=== PATIENT | female | born 1955 | race Caucasian/White ===

== ENCOUNTER → 2017-02-17 | Outpatient (CLI) | payer OTHER ==
[~2017-02-17] MED LIST: ISOVUE-370 76% 100ML VIAL (Q9967) As Ordered ONE
--- NOTE | 2017-02-18 03:46 | REP ---
Clinical: Recurrent urinary tract system and family history of renal cell carcinoma. Technique: Axial contrast enhanced images from the lung bases to the pubic symphysis using 100 ml Isovue 370 intravenous contrast material with precontrast and delayed images of the abdomen as well as coronal and sagittal re-formations. Comparison: 07/24/2014. Findings: Evaluation of the urinary tract system is essentially unremarkable. Incidental note is made of a sub centimeter cyst along the anterior margin of the left kidney mid pole level. No evidence for nephrolithiasis, hydroureteronephrosis, perinephric stranding or mass lesion appreciated. Liver includes 2.3 cm cyst and is otherwise unremarkable. Spleen, pancreas, gallbladder, and bilateral adrenal glands are normal. The enteric system is without obstruction or acute inflammatory process. Pelvis demonstrates normal bladder and evidence for prior hysterectomy. Sigmoid diverticulosis noted without acute diverticulitis. No pelvic fluid or ascites. No intraperitoneal or retroperitoneal adenopathy. No mass lesion. Vasculature appears relatively normal. Surrounding musculoskeletal structures demonstrate degenerative changes without focal osseous abnormality. Lung bases clear. Impression: 1. Subcentimeter left renal cyst. Otherwise normal appearance to the urinary tract system. 2. 2.3 cm hepatic cyst. 3. Sigmoid diverticulosis. 4. No acute intra-abdominal or pelvic pathology appreciated. Signed by Ben Frey MD 02/18/2017 03:38 A
== END ==
LOC: M RAD 07:32
PROVIDERS: ATTEND Nurse Practitioner Women's Health
DX: N39.0 Urinary tract infection, site not specified (principal); N28.1 Cyst of kidney, acquired; Z80.51 Family history of malignant neoplasm of kidney; K76.89 Other specified diseases of liver; K57.30 Diverticulosis of large intestine without perforation or abscess without bleeding
CPT/HCPCS: 74178; Q9967

== ENCOUNTER → 2017-02-24 | Outpatient (REF) | payer OTHER | LOC: M SMT 13:03 | PROVIDERS: ATTEND Nurse Practitioner Women's Health | DX: Z87.440 Personal history of urinary (tract) infections (principal) ==

== ENCOUNTER → 2017-03-12 | Outpatient (CLI) | payer OTHER ==
--- NOTE | 2017-03-12 11:40 | REPMRS ---
Patient History The patient states she has not had a clinical breast exam in over a year. Patient is postmenopausal. Family history of colorectal cancer in mother at age 50 or over and colorectal cancer in brother at age 50 or over. Digital Mammo Screening Bilat: March 12, 2017 - Exam #: [id number] Bilateral CC and MLO view(s) were taken. Technologist: Tiffany Duran, Technologist Prior study comparison: March 07, 2016, bilateral digital mammo screening bilat performed at [facility]. February 27, 2015, bilateral digital mammo screening bilat performed at [facility]. FINDINGS: There are scattered fibroglandular densities. There has been no change in the appearance of the mammogram from the prior studies. There is a mild amount of residual fibroglandular tissue which is fairly symmetric. There is no interval development of dominant mass, architectural distortion, or clustered microcalcification suggestive of malignancy. ASSESSMENT: BI-RADS/ACR category 1 mammogram. Negative. Recommendation Routine screening mammogram in 1 year (for women over age 40). This mammogram was interpreted with the aid of an FDA-approved computer-aided dectection system. Electronically Signed By: Adolfo Lima MD 03/12/17 [id number]
== END ==
LOC: M RAD 10:59
PROVIDERS: ATTEND Family Medicine
DX: Z12.31 Encounter for screening mammogram for malignant neoplasm of breast (principal)

== ENCOUNTER 2017-10-14 05:55 | Inpatient (IN) | payer OTHER ==
[2017-10-14] MEDS: CLINDAMYCIN INJ 900MG/6ML VIAL As Ordered ×2 (05:22→09:44)
[2017-10-14] MEDS: LR 1,000 ML IV ×2 (06:35→11:00)
[2017-10-14] MEDS ORDERED: MIDAZOLAM INJ 2 MG/2 ML VIAL (J2250) As Ordered (06:42)
[2017-10-14] MEDS ORDERED: fentaNYL 100 MCG/2 ML INJECTION (J3010) As Ordered ×2 (06:42→09:54)
[2017-10-14] MEDS: VANCOMYCIN HCL 1,000 MG, VIAL MATE ADAPTER 1 EACH in D5W 250 ML IV ×2 (07:05→20:07)
[2017-10-14] MEDS: MIDAZOLAM INJ 2 MG/2 ML VIAL (J2250) IV (07:07)
[2017-10-14] MEDS: fentaNYL 100 MCG/2 ML INJECTION (J3010) IV (07:07)
[2017-10-14] MEDS: TRANEXAMIC ACID 100 MG/ML 10ML VIAL As Ordered (07:50)
[2017-10-14] MEDS ORDERED: LIDOCAINE 2% INJ 100 MG/5 ML SDV (FOR ANES.) As Ordered (07:54)
[2017-10-14] MEDS ORDERED: PROPOFOL 200 MG/20 ML VIAL As Ordered ×4 (07:54→09:55)
[2017-10-14] MEDS: BUPIVACAINE LIPOSOME/PF 1.3% 20 ML VIAL (13.3MG/ML)(EXPAREL) As Ordered ×2 (08:48→09:44)
[2017-10-14] MEDS: LOSARTAN 50 MG TAB PO (09:00)
[2017-10-14] MEDS ORDERED: LIDOCAINE 1% MDV 20ML VIAL (09:47)
[2017-10-14] MEDS ORDERED: ROPIvacaine 0.5% 30 ML INJECTION (J2795 PER 1MG) (09:47)
[2017-10-14] MEDS ORDERED: PERCOCET 5MG/325MG TAB PO (11:00)
[2017-10-14] MEDS ORDERED: MEPERIDINE INJ 25 MG/ML VIAL (J2175) IV (11:00)
[2017-10-14] MEDS ORDERED: ONDANSETRON 4MG/2ML VIAL (J2405) IV ×2 (11:00→11:45)
[2017-10-14] MEDS ORDERED: METOCLOPRAMIDE INJ 10MG/2ML VIAL (J2765) IV (11:00)
[2017-10-14] MEDS ORDERED: fentaNYL 100 MCG/2 ML INJECTION (J3010) IV (11:00)
[2017-10-14] MEDS ORDERED: ACETAMINOPHEN TAB 650MG DOSE (2X325MG) PO (11:45)
[2017-10-14] MEDS ORDERED: traMADol 50 MG TAB PO (11:45)
[2017-10-14] MEDS: traMADol 50 MG TAB PO (12:50)
[2017-10-14] MEDS: PERCOCET 5MG/325MG TAB PO ×3 (14:37→22:53)
[2017-10-14] MEDS: PROPRANOLOL 60 MG LA CAP PO (20:07)
[2017-10-14] MEDS: SERTRALINE HCL 25 MG TABLET PO (20:07)
[2017-10-14] MEDS: ACETAMINOPHEN TAB 650MG DOSE (2X325MG) PO (20:16)
[2017-10-15] MEDS: PERCOCET 5MG/325MG TAB PO ×5 (05:20→21:54)
[2017-10-15 07:56] LABS: HEMATOCRIT 32.8 % (36.0-47.0); HEMOGLOBIN 10.5 g/dl (12.0-16.0); MEAN CORPUSCULAR HEMOGLOBIN 28.7 pg (27.0-33.0); MEAN CORPUSCULAR VOLUME 89.6 fl (80.0-96.0); PLATELET COUNT, AUTOMATED 252 10^3/uL (150-450); RED BLOOD COUNT 3.66 10^6/uL (4.00-5.40); RED CELL DISTRIBUTION WIDTH 13.4 % (11.5-14.5); WHITE BLOOD COUNT 10.9 10^3/uL (4.0-10.0)
[2017-10-15 08:09] LABS: INR 1.09; PROTHROMBIN TIME 14.3 SECONDS (12.4-14.5)
[2017-10-15] MEDS ORDERED: PROPRANOLOL 60 MG LA CAP PO (09:00)
[2017-10-15] MEDS: LOSARTAN 50 MG TAB PO (09:24)
[2017-10-15] MEDS: ENOXAPARIN 40 MG/0.4 ML SYRINGE (J1650) SC (09:25)
[2017-10-15] MEDS: SERTRALINE HCL 25 MG TABLET PO (20:08)
[2017-10-15] MEDS: PROPRANOLOL 60 MG LA CAP PO (20:09)
[2017-10-16] MEDS: PERCOCET 5MG/325MG TAB PO ×2 (05:41→10:14)
[2017-10-16 07:04] LABS: INR 1.11; PROTHROMBIN TIME 14.5 SECONDS (12.4-14.5)
[2017-10-16] MEDS: LOSARTAN 50 MG TAB PO (08:45)
[2017-10-16] MEDS: ENOXAPARIN 40 MG/0.4 ML SYRINGE (J1650) SC (08:46)
== END 2017-10-16 12:07 | disposition home or self-care (01) | DRG 470 ==
LOC: M OR 05:55 → M MS5PR 13:20
PROC: 0SRC0J9 Replacement of Right Knee Joint with Synthetic Substitute, Cemented, Open Approach (ICD-10-PCS; principal; 2017-10-14 07:30)
DX: M17.11 Unilateral primary osteoarthritis, right knee (principal); Z88.0 Allergy status to penicillin; Z88.2 Allergy status to sulfonamides; Z88.5 Allergy status to narcotic agent; Z88.8 Allergy status to other drugs, medicaments and biological substances; Z79.899 Other long term (current) drug therapy

== ENCOUNTER → 2018-01-29 | Outpatient (CLI) | payer OTHER | LOC: M RAD 13:17 | DX: N28.1 Cyst of kidney, acquired (principal); Z85.528 Personal history of other malignant neoplasm of kidney ==

== ENCOUNTER → 2018-03-16 | Outpatient (CLI) | payer OTHER | LOC: M RAD 09:43 | DX: R92.2 Inconclusive mammogram (principal) | CPT/HCPCS: 77067 ==

== ENCOUNTER → 2018-03-23 | Outpatient (CLI) | payer OTHER | LOC: M RAD 10:27 | DX: N63.10 Unspecified lump in the right breast, unspecified quadrant (principal) | CPT/HCPCS: 77065 ==

== ENCOUNTER → 2018-04-08 | Outpatient (CLI) | payer OTHER | LOC: M RAD 11:03 | DX: N63.11 Unspecified lump in the right breast, upper outer quadrant (principal) | CPT/HCPCS: 77065 ==

== ENCOUNTER → 2018-05-06 | Outpatient (CLI) | payer OTHER ==
[~2018-05-06] MED LIST changes: -ISOVUE-370 76% 100ML VIAL (Q9967) As Ordered ONE; +LIDOCAINE 1% MDV 20ML VIAL As Ordered
== END ==
LOC: M RADPRO 10:46
DX: N63.10 Unspecified lump in the right breast, unspecified quadrant (principal); D48.61 Neoplasm of uncertain behavior of right breast; Z88.5 Allergy status to narcotic agent; Z88.8 Allergy status to other drugs, medicaments and biological substances; Z88.0 Allergy status to penicillin; Z88.1 Allergy status to other antibiotic agents
CPT/HCPCS: 19081

== ENCOUNTER 2018-06-01 06:42 | Day surgery (SDC) | payer OTHER ==
[~2018-06-01 06:42] MED LIST changes: -LIDOCAINE 1% MDV 20ML VIAL As Ordered; +LIDOCAINE 1% MDV 20ML VIAL SQ
[2018-06-01] MEDS ORDERED: LIDOCAINE 5% (LIDODERM) PATCH TD ×2 (07:00)
[2018-06-01] MEDS ORDERED: LR 1,000 ML IV ×2 (07:00)
[2018-06-01] MEDS ORDERED: LIDOCAINE 1% MDV 20ML VIAL As Ordered ×2 (07:08)
[2018-06-01] MEDS ORDERED: LIDOCAINE 2% INJ 100 MG/5 ML SDV (FOR ANES.) As Ordered ×2 (10:07)
[2018-06-01] MEDS ORDERED: PROPOFOL 200 MG/20 ML VIAL As Ordered ×6 (10:07→10:56)
[2018-06-01] MEDS ORDERED: ONDANSETRON 4MG/2ML VIAL (J2405) As Ordered ×2 (10:07)
[2018-06-01] MEDS ORDERED: fentaNYL 250 MCG/5 ML INJECTION (J3010) As Ordered ×2 (10:07)
[2018-06-01] MEDS ORDERED: MIDAZOLAM INJ 2 MG/2 ML VIAL (J2250) As Ordered ×2 (10:07)
[2018-06-01] MEDS ORDERED: ePHEDrine SULFATE 25 MG/5 ML(5MG/ML) SYRINGE As Ordered ×2 (10:10)
[2018-06-01] MEDS: LIDOCAINE 1% SDV INJ 30 ML VIAL As Ordered ×2 (10:16)
[2018-06-01] MEDS: BUPIVACAINE HCL 0.25% 30 ML VIAL As Ordered ×2 (11:06)
== END 2018-06-01 12:25 | disposition home or self-care (01) ==
LOC: M SDC 06:42
DX: N60.91 Unspecified benign mammary dysplasia of right breast (principal); I10 Essential (primary) hypertension; H40.9 Unspecified glaucoma; F32.9 Major depressive disorder, single episode, unspecified; I49.9 Cardiac arrhythmia, unspecified; E78.00 Pure hypercholesterolemia, unspecified; M12.9 Arthropathy, unspecified; L30.9 Dermatitis, unspecified; J45.909 Unspecified asthma, uncomplicated; R06.83 Snoring; G47.33 Obstructive sleep apnea (adult) (pediatric); Z88.0 Allergy status to penicillin; Z88.2 Allergy status to sulfonamides; Z88.5 Allergy status to narcotic agent; Z88.6 Allergy status to analgesic agent; Z88.8 Allergy status to other drugs, medicaments and biological substances; Z79.899 Other long term (current) drug therapy; Z79.82 Long term (current) use of aspirin; Z90.710 Acquired absence of both cervix and uterus; Z87.891 Personal history of nicotine dependence; Z96.651 Presence of right artificial knee joint
CPT/HCPCS: 19125

== ENCOUNTER 2019-01-05 05:54 | Inpatient (IN) | payer OTHER ==
[2019-01-05] VITALS (7 sets, daily range): BP systolic 111–166; BP diastolic 50–88
[~2019-01-05] VITALS: Ht 165.1 cm; Wt 122.5 kg
[~2019-01-05 05:54] MED LIST changes: +ASPI81TA26 PO; +ASPI81TA85 PO; +B-122500 PO; +FISH5CAP PO; +FLAX1CAP5 PO; +GLUC1CAP10 PO; +KP F1200 PO; +L-LY500C2 PO; +L-LY500T9 PO; -LIDOCAINE 1% MDV 20ML VIAL SQ; +LOSA100T50 PO; +OYST1TAB PO; +OYST500T11 PO; +PERCOCET PO; +PROP60TA14 PO; +SERT25TA85 PO; +VITA1CAP25 PO; +XALA0.007 OU
[2019-01-05] MEDS ORDERED: LR 1,000 ML IV ONE (06:00)
[2019-01-05] MEDS ORDERED: VANCOMYCIN HCL 1,000 MG, VIAL MATE ADAPTER 1 EACH in D5W 250 ML IV ONE ×2 (06:00→19:00)
[2019-01-05] MEDS ORDERED: VANCOMYCIN 1000 MG/20 ML VIAL (J3370) As Ordered ONE (06:22)
[2019-01-05] MEDS ORDERED: MIDAZOLAM INJ 2 MG/2 ML VIAL (J2250) As Ordered ONE ×2 (06:38→09:02)
[2019-01-05] MEDS ORDERED: fentaNYL 100 MCG/2 ML INJECTION (J3010) As Ordered ONE ×2 (06:38→09:02)
[2019-01-05] MEDS ORDERED: CLINDAMYCIN INJ 900MG/6ML VIAL As Ordered ONE (07:13)
[2019-01-05] MEDS ORDERED: LIDOCAINE 2% INJ 100 MG/5 ML SDV (FOR ANES.) As Ordered ONE ×2 (07:27→09:02)
[2019-01-05] MEDS ORDERED: PROPOFOL 200 MG/20 ML VIAL As Ordered ONE ×4 (07:27→09:55)
[2019-01-05] MEDS ORDERED: ACETAMINOPHEN 1000MG 100ML IV BTL (OFIRMEV) (J0131 PER 10MG) As Ordered ONE (07:29)
[2019-01-05] MEDS ORDERED: TRANEXAMIC ACID 100 MG/ML 10ML VIAL As Ordered ONE (07:36)
[2019-01-05] MEDS ORDERED: BUPIVACAINE LIPOSOME/PF 1.3% 20ML VIAL (13.3MG/ML)(EXPAREL)(C9290 PER1MG) As Ordered ONE (07:36)
[2019-01-05] MEDS ORDERED: dexameTHASONE 10 MG/1 ML VIAL PRES.FREE (J1100) ONE (08:13)
[2019-01-05] MEDS ORDERED: ROPIvacaine 0.5% 30 ML INJECTION (J2795 PER 1MG) ONE (08:13)
[2019-01-05] MEDS ORDERED: EPINEPHrine INJ 1 MG/ML 1ML AMP ONE (08:13)
[2019-01-05] MEDS ORDERED: fentaNYL 100 MCG/2 ML INJECTION (J3010) IV ONE (08:15)
[2019-01-05] MEDS ORDERED: MIDAZOLAM INJ 2 MG/2 ML VIAL (J2250) IV ONE (08:15)
[2019-01-05] MEDS ORDERED: ePHEDrine SULFATE 25 MG/5 ML(5MG/ML) SYRINGE As Ordered ONE ×2 (08:52→08:55)
[2019-01-05] MEDS ORDERED: BUPIVACAINE/DEXTROSE 0.75% 2 ML AMP As Ordered ONE (09:02)
[2019-01-05] MEDS ORDERED: ONDANSETRON 4MG/2ML VIAL (J2405) As Ordered ONE (09:02)
[2019-01-05] MEDS ORDERED: dexameTHASONE 4 MG/ML 1ML VIAL (J1100) As Ordered ONE (09:02)
[2019-01-05] MEDS ORDERED: ONDANSETRON 4MG/2ML VIAL (J2405) IV PRN ×3 (11:45→12:00)
[2019-01-05] MEDS ORDERED: PERCOCET 5MG/325MG TAB PO PRN (11:45)
[2019-01-05] MEDS ORDERED: NORCO, ANEXSIA 5/325MG TABLET (HYDROcodone/ACETAMINOPHEN) As Ordered ONE (11:45)
[2019-01-05] MEDS ORDERED: FLEET ENEMA PR PRN (11:45)
[2019-01-05] MEDS ORDERED: ACETAMINOPHEN TAB 650MG DOSE (2X325MG) PO PRN ×2 (11:45)
[2019-01-05] MEDS ORDERED: LR 1,000 ML IV SCH ×2 (12:00)
[2019-01-05] MEDS ORDERED: fentaNYL 100 MCG/2 ML INJECTION (J3010) IV PRN ×2 (12:00)
[2019-01-05] MEDS ORDERED: NORCO, ANEXSIA 5/325MG TABLET (HYDROcodone/ACETAMINOPHEN) PO PRN (12:00)
--- NOTE | 2019-01-05 15:16 | REP ---
LEFT KNEE, TWO VIEWS: Two portable views of the left knee performed. A total knee prosthesis appears to be in good position. Structures are well aligned. The osseous structures are intact. Postsurgical air is seen anteriorly in the soft tissues. Electronically Signed by Adolfo Lima MD 01/05/2019 04:10 P
--- NOTE | 2019-01-05 15:45 | RO ---
DATE OF PROCEDURE: 01/05/2019 PREOPERATIVE DIAGNOSIS: Left knee osteoarthritis. POSTOPERATIVE DIAGNOSIS: Left knee osteoarthritis. PROCEDURE PERFORMED: Left total knee arthroplasty. SURGEON: Saw Steel MD PHARMACY SERVICES DIRECTOR: ELSIHA Fontaine ANESTHESIA PROVIDER. Kenyon Varghese MD ANESTHESIA: Single shot spinal and adductor canal nerve block. ANTIBIOTICS: 1 gram IV vancomycin given within 1 hour of incision. OTHER MEDICATIONS: 1g IV TXA given prior to incision TOTAL TOURNIQUET TIME: 111 minutes at 250 mmHg left thigh. IMPLANTS USED: DePuy Attune size 6 narrow posterior stabilized femur with size 5 fixed bearing tibia, 7 mm posterior stabilized polyethylene and 32 mm patellar polyethylene. ESTIMATED BLOOD LOSS: 150 mL. MATERIAL SENT TO THE LAB: Left knee bone for permanent specimen. COMPLICATIONS: None. INDICATIONS FOR PROCEDURE Henna Zazueta is a 63-year-old female who has longstanding left knee osteoarthritis that is interfering with her daily activities. She had failed appropriate nonoperative treatment to include activity modification, weight loss attempt, oral medications, exercise therapy and injections. She had radiographic findings that were consistent with tricompartmental osteoarthritis with mild varus deformity. I discussed with the patient the risks, benefits, indications, alternatives, operative versus nonoperative management. The patient elected to proceed with left total knee arthroplasty. Informed consent was obtained. INTRAOPERATIVE FINDINGS The left knee was stable after fixation of all implants with full range of motion, stable to varus and valgus stress in full extension, mid flexion and 90 degrees flexion, DESCRIPTION OF OPERATION The patient was positively identified in the preop holding area where the surgical site was marked. She was then given a single shot adductor canal nerve block by the anesthesia service for postop pain control. She was then brought to the operating room where she was given a single shot spinal anesthesia for intraoperative pain control and a Owens catheter was placed. She was positioned supine on a regular table with all bony prominences appropriately padded. SCD was placed on the nonoperative extremity for DVT prophylaxis. She was then prepped and draped in the usual sterile fashion. A final time-out was performed. I made a 15 cm incision just medial to the midline extending from 7 cm proximal to superior pole of the patella to about 5 to 6 cm distal to the inferior pole of the patella. I dissected through skin and subcutaneous tissue, identified the quadirecps tendon layer and medial retinaculum and then performed a medial parapatellar arthrotomy in standard fashion followed by a medial release. I then performed a synovectomy of the superior synovium and resection of the patellar fat pad. The patella was then everted and the knee brought into flexion. The anterior horn of the lateral meniscus was cut in addition to the lateral patellofemoral plica. I then used the step-cut drill into the femoral shaft for placement of the intramedullary distal femur cutting guide. The 5 degrees left valgus cut of the intramedullary guide was inserted into the femoral shaft. I then performed a 9 mm cut of the distal femur in standard fashion. I then used the posterior referencing guide to size the femur to a size 6 followed by placement of the four-in-one cutting block ensuring that the cuts would be in line with the epicondylar axis and perpendicular to [place] line then performed the anterior, posterior and chamfer cuts in standard fashion. This was then followed by resection of the ACL and PCL and medial and lateral menisci followed by placement of the extramedullary tibial cutting guide which was set to a 4 mm cut on the medial side. I then placed the tibial cutting guide and performed the proximal tibial cut in standard fashion. This was then followed by placement of lamina rehabilitation program manager both medially and laterally to clear bony debris from the posterior compartments and I confirmed symmetric flexion gap medially and laterally. I then injected about 20 mL of Exparel; that was expanded with 40 mL of saline for a total of 60 mL. About 20 mL of this mixture was injected into the posterior capsule for additional postoperative pain control. I then performed the patellar resection. The patella was measured to about 23 mm of thickness. I then resected 9 mm leaving 14 mm of residual patella. It was then sized to a 32 mm patellar insert and the patella trial was placed and the lug holes were drilled in standard fashion. I then inserted trial components and floated the tibial tray and confirmed adequate patellar tracking using no-touch technique. I then after trialing elected to place a narrow size 6 femur. The lug holes for the femur were then drilled. The tibia was sized to a size 5 with the tibial component in line with the junction of the medial and middle thirds of tibial tubercle. This was then followed by preparation of the tibia. After preparation of the tibia, femur and patella all trials were removed. All the bony debris and blood was then thoroughly irrigated from the cancellous bone and the femoral and tibial components of the distal femur, proximal tibia and patella were then thoroughly dried. I then cemented the final components to include the size 6 narrow posterior stabilized femur, size 5 fixed bearing tibia. I then placed the 7 mm posterior stabilized polyethylene followed by final cementing of the patellar polyethylene. The knee was then held in extension while the cement cured, followed by placement of 2 grams of additional topical TXA for bleeding control. As the cement cured, all residual cement debris was cleared from the wound. The remainder of the exparel mixture was injected into the periarticular tissues for additional post op pain control. The knee was thoroughly irrigated with normal saline. The tourniquet was let down. Hemostasis was obtained using Bovie electrocautery. The knee was then brought through range of motion with good tracking of the patella using standard no-touch technique and the knee had full range of motion and was stable to varus and valgus stress with about 2 mm of gapping medially and 1 mm of gapping laterally. This was then followed by layered closure. The retinacular layer was first closed with interrupted #0 Vicryl suture in [id number] fashion followed by a running barbed suture to close the retinacular layer. The subcutaneous layer was then closed with buried #2-0 Vicryl suture followed by running #3-0 Monocryl for the skin. A Prineo Dermabond dressing was then placed over the skin for final closure. Sterile dressings were applied. This ended the procedure. I was present and scrubbed in for all critical portions of the case. POSTOPERATIVE PLAN The patient will be admitted to the hospital for physical therapy and pain control. She will be weightbearing as tolerated to the left lower extremity. She will receive full dose aspirin for DVT prophylaxis and will be discharged when criteria met. DEEPTHID
[2019-01-05] MEDS: PERCOCET 5MG/325MG TAB PO PRN ×2 (16:00→22:23)
[2019-01-06] VITALS (8 sets, daily range): BP systolic 133–170; BP diastolic 68–88
[2019-01-06] MEDS: PERCOCET 5MG/325MG TAB PO PRN ×3 (05:53→18:33)
[2019-01-06 06:35] LABS: HEMATOCRIT 35.7 % (36.0-47.0); HEMOGLOBIN 11.2 g/dl (12.0-15.5); MEAN CORPUSCULAR HEMOGLOBIN 28.1 pg (27.0-33.0); MEAN CORPUSCULAR HGB CONC 31.4 g/dl (32.0-36.5); MEAN CORPUSCULAR VOLUME 89.7 fl (80.0-96.0); PLATELET COUNT, AUTOMATED 289 10^3/uL (150-450); RED BLOOD COUNT 3.98 10^6/uL (4.00-5.40); WHITE BLOOD COUNT 16.3 10^3/uL (4.0-10.0)
--- NOTE | 2019-01-06 08:25 | IPNPDOC ---
Date Seen The patient was seen on 01/06/19. Progress Note SUBJECTIVE: Patient is a 63 y/o female POD1 s/p L TKA. Patient seen and examined overnight. No acute overnight events. Has gotten up to the restroom on her own and voided spontaneously. OBJECTIVE PHYSICAL EXAMINATION: VITAL SIGNS: Please see below. GENERAL: well nourished female, no acute distress CARDIOVASCULAR: 2+ DP/PT pulses, BCR all digits LLE. RESPIRATORY: non labored breathing. EXTREMITIES: LLE dressing in place, c/d/i. able to perform SLR. Full active ankle ROM NEUROLOGICAL: Sensation/motor intact in all LLE distributions LABORATORY DATA: Please see below. IMAGING: Post op films demonstrate well fixed TKA components DVT prophylaxis ordered?: Aspirin 325mg, SCDs ASSESSMENT : This is a 63 y/o female POD1 s/p L TKA doing well PLAN: 1. WBAT LLE 2. PT for ambulation 3. Aspirin for DVT prophylaxis 4. Dressing down tomorrow 5. d/c labs DISPOSITION: likely d/c home tomorrow. A-FIB/CHADSVASC A-FIB History Current/History of A-Fib/PAF?: No Current Oral Anticoagulant The: No Age/Risk Factor Scoring CHADSVASC: CHADSVASC Response (Comments) Value Age Risk Factor Age < 65 years old 0 Gender Risk Factor Female 1 Hx of CHF No 0 Hx of HTN Yes 1 Hx of Stroke/TIA/or VTE No 0 Hx of Diabetes No 0 Hx of Vascular Disease No 0 Total 2 Treatment Treatment ordered: Other (Full dose aspirin) VS, I&O, 24H, Fishbone Vital Signs/I&O Vital Signs Date Time Temp Pulse Resp B/P (MAP) Pulse Ox O2 Delivery O2 Flow Rate FiO2 01/06/19 06:30 16 01/06/19 06:00 97.7 81 136/80 (98) 95 01/05/19 16:59 2.0 01/05/19 15:47 Nasal Cannula I&O- Last 24 Hours up to 6 AM 01/06/19 06:00 Intake Total 3240 ml Output Total 2150 ml Balance 1090 ml Laboratory Data 24H LABS Laboratory Tests 2 01/06/19 06:04: Nucleated Red Blood Cells % (auto) 0.0 CBC/BMP Laboratory Tests 01/06/19 06:04 Red Blood Count 3.98 L, Mean Corpuscular Volume 89.7, Mean Corpuscular Hemoglobin 28.1, Mean Corpuscular Hemoglobin Concent 31.4 L, Red Cell Dis tribution Width 13.6 NUBIA PINEDA MD January 06, 2019 08:25
[2019-01-06] MEDS ORDERED: LOSARTAN 50 MG TAB PO SCH (09:00)
[2019-01-06] MEDS ORDERED: ASPIRIN 325 MG TAB PO SCH (09:00)
[2019-01-06] MEDS ORDERED: PROPRANOLOL 60 MG LA CAP PO SCH ×2 (09:00→21:00)
[2019-01-06] MEDS ORDERED: SERTRALINE HCL 25 MG TABLET PO SCH ×2 (09:00→21:00)
[2019-01-07] MEDS: PERCOCET 5MG/325MG TAB PO PRN ×2 (00:41→06:49)
[2019-01-07 06:00] VITALS: BP 140/68
--- NOTE | 2019-01-07 07:31 | IPNPDOC ---
Date Seen The patient was seen on 01/07/19. Progress Note SUBJECTIVE: Patient is a 63 y/o female POD2 s/p L TKA. Patient seen and examined at bedside. No acute overnight events. Has gotten up to the restroom on her own and voided spontaneously. She participated in PT yesterday and was able to navigate stairs. OBJECTIVE PHYSICAL EXAMINATION: VITAL SIGNS: Please see below. GENERAL: well nourished female, no acute distress CARDIOVASCULAR: 2+ DP/PT pulses, BCR all digits LLE. RESPIRATORY: non labored breathing. EXTREMITIES: LLE wound c/d/i. able to perform SLR with assistance. Full active ankle ROM. Knee ROM 0-60. NEUROLOGICAL: Sensation/motor intact in all LLE distributions LABORATORY DATA: Please see below. IMAGING: Post op films demonstrate well fixed TKA components DVT prophylaxis ordered?: Aspirin 325mg, SCDs ASSESSMENT : This is a 63 y/o female POD2 s/p L TKA doing well PLAN: 1. WBAT LLE 2. PT for ambulation 3. Aspirin for DVT prophylaxis 4. d/c home today after PT A-FIB/CHADSVASC A-FIB History Current/History of A-Fib/PAF?: No Current Oral Anticoagulant The: No Age/Risk Factor Scoring CHADSVASC: CHADSVASC Response (Comments) Value Age Risk Factor Age < 65 years old 0 Gender Risk Factor Female 1 Hx of CHF No 0 Hx of HTN Yes 1 Hx of Stroke/TIA/or VTE No 0 Hx of Diabetes No 0 Hx of Vascular Disease No 0 Total 2 Treatment Treatment ordered: Other (full dose aspirin) VS, I&O, 24H, Fishbone Vital Signs/I&O Vital Signs Date Time Temp Pulse Resp B/P (MAP) Pulse Ox O2 Delivery O2 Flow Rate FiO2 01/07/19 06:49 16 01/07/19 06:00 96.4 82 140/68 (92) 96 01/05/19 16:59 2.0 01/05/19 15:47 Nasal Cannula I&O- Last 24 Hours up to 6 AM 01/07/19 06:00 Intake Total 1740 ml Output Total 0 ml Balance 1740 ml NUBIA PINEDA MD January 07, 2019 07:31
--- NOTE | 2019-01-07 07:32 | DS.PDOC ---
Discharge Summary General Date of Admission January 05, 2019 at 05:54 Date of Discharge 01/07/19 Attending Physician: NUBIA PINEDA MD Discharge Summary PROCEDURES PERFORMED DURING STAY: Left total knee arthroplasty 01/05/2019. ADMITTING DIAGNOSES: 1. Left knee osteoarthritis DISCHARGE DIAGNOSES: 1. Left knee osteoarthritis COMPLICATIONS/CHIEF COMPLAINT: Left Knee Osteoarthritis. HISTORY OF PRESENT ILLNESS: Patient is a 63 year old female with long standing left knee osteoarthritis admitted for left total knee arthroplasty. HOSPITAL COURSE: Patient underwent uneventful above procedure on the day of admission. She was admitted to the hospital floor for post op pain control and, physical therapy. On the day of discharge, she was ambulating with a walker, pain was controlled, he was tolerating PO intake, voiding spontaneously, and had demonstrated proficiency in taking oral DVT prophylaxis. DISCHARGE MEDICATIONS: Please see below. ALLERGIES: Please see below. PHYSICAL EXAMINATION ON DISCHARGE: VITAL SIGNS: Please see below. GENERAL: No acute distress CARDIOVASCULAR EXAMINATION: 2+ DP/PT pulses LLE RESPIRATORY EXAMINATION: Non labored breathing EXTREMITIES: L knee wound well healed, clean, dry, intact. Knee ROM 0-60 degrees LABORATORY DATA: Please see below. IMAGING: Post op radiographs demonstrate well fixed total knee arthroplasty components PROGNOSIS: Good ACTIVITY: As tolerated. DIET: Regular. DISCHARGE PLAN: Discharge to home DISPOSITION: Home, Self-Care. DISCHARGE CONDITION: Stable. Vital Signs/I&Os Vital Signs Date Time Temp Pulse Resp B/P (MAP) Pulse Ox O2 Delivery O2 Flow Rate FiO2 01/06/19 06:30 16 01/06/19 06:00 97.7 81 136/80 (98) 95 01/05/19 16:59 2.0 01/05/19 15:47 Nasal Cannula I&O- Last 24 Hours up to 6 AM 01/06/19 05:59 Intake Total 3120 ml Output Total 2150 ml Balance 970 ml Laboratory Data Labs 24H Laboratory Tests 2 01/06/19 06:04: Nucleated Red Blood Cells % (auto) 0.0 CBC/BMP Laboratory Tests 01/06/19 06:04 Red Blood Count 3.98 L, Mean Corpuscular Volume 89.7, Mean Corpuscular Hemoglobin 28.1, Mean Corpuscular Hemoglobin Concent 31.4 L, Red Cell Distribution Width 13.6 Discharge Medications Scheduled Calcium Carbonate/Vitamin D3 (Oyster Shell 500-Vit D3 200 Tb) 1 Each Tablet, 1 TAB PO DAILY, (Reported) Cholecalciferol (Vitamin D3) (Vitamin D3) 50,000 Unit Capsule, 50,000 UNIT PO QWEEK, (Reported) Cyanocobalamin (Vitamin B-12) (Vitamin B12) 2,500 Mcg Tablet, 1,000 MCG PO DAILY, (Reported) Flaxseed Oil (Flaxseed Oil) 1,000 Mg Capsule, 1 CAP PO BID, (Reported) Gluc Hernández/Chondro Hernández A/Vit C/Mn (Glucosamine-Chondroitin Cap) 1 Cap Cap, 1 CAP PO TID, (Reported) Latanoprost (Xalatan) 0.005 % Milagros, 1 DROP OU QHS, (Reported) Losartan Potassium (Losartan Potassium) 100 Mg Tab, 100 MG PO DAILY, (Reported) Lysine HCl (l-Lysine) 500 Mg Tablet, 500 MG PO QPM, (Reported) Propranolol Hcl (Propranolol HCl) 60 Mg Tab, 60 MG PO QPM, (Reported) Sertraline Hcl (Sertraline HCl) 25 Mg Tab, 25 MG PO QPM, (Reported) Allergies Coded Allergies: rofecoxib (Verified Allergy, Severe, BREATHING DIFFICULTY, 12/22/18) NSAIDS (Non-Steroidal Anti-Inflamma (Verified Allergy, Intermediate, ASTHMATIC ATTACK, 12/22/18) Penicillins (Verified Allergy, Intermediate, HIVES, 12/22/18) atorvastatin (Verified Adverse Reaction, Intermediate, MUSCLE PAIN, 12/22/18) morphine (Verified Adverse Reaction, Intermediate, CONFUSION AND NAUSEA, 12/22/18) simvastatin (Verified Adverse Reaction, Intermediate, MUSCLE PAIN, 12/22/18) sulfamethoxazole (Verified Adverse Reaction, Mild, GI UPSET, 12/22/18) trimethoprim (Verified Adverse Reaction, Mild, GI UPSET, 12/22/18) NUBIA PINEDA MD January 06, 2019 08:36
[2019-01-07] MEDS ORDERED: ASPIRIN 325 MG TAB PO SCH (21:00)
[2019-01-07] MEDS ORDERED: LOSARTAN 50 MG TAB PO SCH (21:00)
== END 2019-01-07 11:05 | disposition home or self-care (01) | DRG 470 ==
LOC: M OR 05:54 → M MS5PR 14:15
PROVIDERS: ADMIT Orthopaedic Surgery; ATTEND Orthopaedic Surgery
PROC: 0SRD0JZ Replacement of Left Knee Joint with Synthetic Substitute, Open Approach (ICD-10-PCS; principal; 2019-01-05 07:30)
DX: M17.12 Unilateral primary osteoarthritis, left knee (principal); Z79.899 Other long term (current) drug therapy; Z88.0 Allergy status to penicillin; Z88.5 Allergy status to narcotic agent; Z88.2 Allergy status to sulfonamides; Z88.8 Allergy status to other drugs, medicaments and biological substances; Z88.6 Allergy status to analgesic agent

== ENCOUNTER → 2019-07-08 | Outpatient (CLI) | payer OTHER ==
--- NOTE | 2019-07-08 12:52 | REP ---
BILATERAL SCREENING DIGITAL MAMMOGRAM WITHOUT 3D TOMOSYNTHESIS: There are no palpable abnormalities or other breast complaints. The the patient states she has not had a clinical breast examination in over a year. The Tyrer-Cuzick Score is: 32.5% . Comparison is 02/08/2013 and 03/16/2018. There are May 2018 the the patient underwent right breast lumpectomy for a nodule identified on the 03/16/2018 mammogram. The lumpectomy results revealed a benign nodule. There are scattered areas of fibroglandular density. There are surgical clips at the biopsy site of the right breast. There is no dominant mass, micro calcific cluster or architectural distortion that would indicate malignancy. Impression: BIRADS/ACR category 2 mammogram. Benign findings. Recommendation: Routine annual screening mammography. For women with a Tyrer-Cuzick score greater than 20 , adjunctive annual breast MRI in addition to screening mammography is recommended. These can be performed at alternating six month intervals. This mammogram was interpreted with the aid of a FDA approved computer-aided detection system. A. Negative mammogram reports should not delay biopsy if a dominant or clinically suspicious mass is present. B. Not all breast cancers are identified by mammography or tomosynthesis. C. Adenosis and dense breasts may obscure an underlying neoplasm. Patient letter M1. Electronically Signed by Adolfo Hernandez MD 07/08/2019 12:44 P
== END ==
LOC: M RAD 10:23
PROVIDERS: ATTEND Family Medicine
DX: Z12.31 Encounter for screening mammogram for malignant neoplasm of breast (principal)

== ENCOUNTER → 2019-08-19 | Outpatient (CLI) | payer OTHER ==
[2019-08-19 16:26] LABS: BASO # 0.1 10^3/uL (0.0-0.2); BASO % 0.6 % (0.0-1.0); EOS # 0.2 10^3/uL (0.0-0.5); EOS % 2.4 % (0.0-3.0); HEMATOCRIT 40.3 % (36.0-47.0); HEMOGLOBIN 12.7 g/dl (12.0-15.5); LYMPH # 2.6 10^3/uL (1.5-5.0); LYMPH % 30.5 % (24.0-44.0); MEAN CORPUSCULAR HEMOGLOBIN 28.6 pg (27.0-33.0); MEAN CORPUSCULAR HGB CONC 31.5 g/dl (32.0-36.5); MEAN CORPUSCULAR VOLUME 90.8 fl (80.0-96.0); MONO # 0.7 10^3/uL (0.0-0.8); MONO % 7.8 % (0.0-5.0); NEUTROPHILS # 4.9 10^3/uL (1.5-8.5); NEUTROPHILS % 58.1 % (36.0-66.0); PLATELET COUNT, AUTOMATED 309 10^3/uL (150-450); RED BLOOD COUNT 4.44 10^6/uL (4.00-5.40); WHITE BLOOD COUNT 8.4 10^3/uL (4.0-10.0)
[2019-08-19 16:36] LABS: INR 1.11
--- NOTE | 2019-08-19 18:01 | ECGEPIP ---
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 Clincal correlation advised Electronically Signed on 08-19-2019 18:01:01 EST by David Read
[2019-08-19 18:11] LABS: BLOOD UREA NITROGEN 12 MG/DL (7-18); CALCIUM LEVEL 8.9 MG/DL (8.8-10.2); CARBON DIOXIDE LEVEL 31 MEQ/L (21-32); CHLORIDE LEVEL 105 MEQ/L (98-107); CREATININE FOR GFR 0.89 MG/DL (0.55-1.30); GLOMERULAR FILTRATION RATE > 60.0 (>45); GLUCOSE, FASTING 84 MG/DL (70-100); POTASSIUM SERUM 4.8 MEQ/L (3.5-5.1); SODIUM LEVEL 143 MEQ/L (136-145)
== END ==
LOC: M LAB 15:47
PROVIDERS: ATTEND Podiatrist
DX: Z01.810 Encounter for preprocedural cardiovascular examination (principal); Z01.812 Encounter for preprocedural laboratory examination; R00.1 Bradycardia, unspecified

== ENCOUNTER 2019-09-09 10:56 | Day surgery (SDC) | payer OTHER ==
[~2019-09-09] VITALS: Ht 165.1 cm; Wt 122.0 kg
[~2019-09-09 10:56] MED LIST changes: +LIDOCAINE 1% MDV 20ML VIAL SQ PRN; +LIDOCAINE 2% INJ 100 MG/5 ML SDV (FOR ANES.) As Ordered ONE; +LR 1,000 ML IV ONE; +MACR100C43 PO; +MIDAZOLAM INJ 2 MG/2 ML VIAL (J2250) As Ordered ONE; +VANCOMYCIN HCL 1,000 MG, VIAL MATE ADAPTER 1 EACH in D5W 250 ML IV ONE; +ZETI10TA16 PO; +fentaNYL 100 MCG/2 ML INJECTION (J3010) As Ordered ONE; +propofoL 200 MG/20 ML VIAL As Ordered ONE
[2019-09-09] MEDS ORDERED: FLON1SPR NARES (11:26)
[2019-09-09] MEDS ORDERED: BACITRACIN PWD 50,000 UNITS VIAL As Ordered ONE (14:11)
[2019-09-09] MEDS ORDERED: BUPIVACAINE HCL 0.5% 30 ML VIAL As Ordered ONE (14:11)
[2019-09-09] MEDS ORDERED: dexameTHASONE 4 MG/ML 1ML VIAL (J1100) As Ordered ONE (14:11)
[2019-09-09] MEDS ORDERED: LIDOCAINE 2% MDV 20 ML VIAL As Ordered ONE (14:11)
[2019-09-09] MEDS ORDERED: NEOSPORIN GU IRRIG 20 ML VIAL As Ordered ONE (14:11)
[2019-09-09 17:24] VITALS: BP 144/65
--- NOTE | 2019-09-11 14:52 | RO ---
DATE OF PROCEDURE: 09/09/2019 PREPROCEDURE DIAGNOSIS: Neuroma third intermetatarsal space, right foot. POSTPROCEDURE DIAGNOSIS: Neuroma third intermetatarsal space, right foot. PROCEDURE: Excision of neuroma, third intermetatarsal space of the right foot. SURGEON: David Ennis DPM PRODUCTION SUPERVISOR OFF SHIFT: None. ANESTHESIA: Local monitored anesthesia care (MAC). HEMOSTASIS: Ankle pneumatic tourniquet at 250 millimeters of mercury for 18 minutes on the right ankle. DESCRIPTION OF PROCEDURE: On 09/09/2019 this 63-year-old white female was taken from her hospital room to the operating room and placed on the operating table in supine position. Following the induction of IV sedation and local and regional anesthesia, the right lower extremity was prepped and draped in the usual aseptic manner. The ankle pneumatic tourniquet was rapidly inflated to 250 millimeters of mercury. The right lower extremity was then returned to the operating room table, sterile draping was completed, and the following procedure was performed: EXCISION OF NEUROMA, THIRD INTERMETATARSAL SPACE, RIGHT FOOT: Attention was directed to the patients right foot where there was noted to be a positive Shanta's sign in the third intermetatarsal space. At this time, a 5 cm incision was placed in the third intermetatarsal space. Incision was deepened through the subcutaneous tissues and all coursing venous tributaries were identified, underscored, clamped, cut, ligated and electrocoagulated as necessary. Dissection was carried down to the deep transverse metatarsal ligament, which was transected. A large neuroma was noted. It was traced into its common digital branches and transected into the digit and then traced into a proximal direction and transected. The wound was flushed with copious amounts of dilute bacitracin, neomycin, and polymyxin B solution. Attention was directed towards closure where the subcutaneous tissues were coapted and maintained utilizing #4-0 Monocryl in a simple interrupted type fashion, skin incision was coapted and maintained using 5-0 Monocryl in a continuous subcuticular type fashion, which was additionally reinforced with Steri-Strips. Following the completion of the surgical procedure, 4 mg of dexamethasone sodium phosphate was instilled proximal to the surgical site. Attention was then directed towards bandaging where a sterile compressive bandage was applied consisting of Adaptic, 4x4s, 4x4 splints, Natalio and Kerlix. Ankle pneumatic tourniquet was rapidly deflated and instantaneous capillary filling time was noted in digits 1-5 of the patient's right foot. The patient, having apparently tolerated the surgical procedure well, was taken from the operating room to the recovery room to be further monitored by the anesthesia department. Postoperative instructions given upon discharge.
== END 2019-09-09 17:33 | disposition home or self-care (01) ==
LOC: M SDC 10:56
PROVIDERS: ATTEND Podiatrist
DX: G57.61 Lesion of plantar nerve, right lower limb (principal); G47.30 Sleep apnea, unspecified; I10 Essential (primary) hypertension; J45.909 Unspecified asthma, uncomplicated; F03.90 Unspecified dementia, unspecified severity, without behavioral disturbance, psychotic disturbance, mood disturbance, and anxiety; Z79.82 Long term (current) use of aspirin; Z79.899 Other long term (current) drug therapy; Z88.5 Allergy status to narcotic agent; Z88.0 Allergy status to penicillin; Z88.2 Allergy status to sulfonamides; Z88.8 Allergy status to other drugs, medicaments and biological substances
CPT/HCPCS: 28080; 88304; J1100; J2250; J3010; J3370

== ENCOUNTER 2019-10-10 19:57 | Inpatient (IN) | payer OTHER ==
[~2019-10-10] VITALS: Ht 165.1 cm; Wt 122.8 kg
[~2019-10-10 19:57] MED LIST changes: +FLON1SPR NARES; -LIDOCAINE 1% MDV 20ML VIAL SQ PRN; -LIDOCAINE 2% INJ 100 MG/5 ML SDV (FOR ANES.) As Ordered ONE; -LR 1,000 ML IV ONE; -MIDAZOLAM INJ 2 MG/2 ML VIAL (J2250) As Ordered ONE; -VANCOMYCIN HCL 1,000 MG, VIAL MATE ADAPTER 1 EACH in D5W 250 ML IV ONE; -fentaNYL 100 MCG/2 ML INJECTION (J3010) As Ordered ONE; -propofoL 200 MG/20 ML VIAL As Ordered ONE
[2019-10-10 20:46] LABS: BASO # 0.1 10^3/uL (0.0-0.2); BASO % 0.6 % (0.0-1.0); EOS # 0.1 10^3/uL (0.0-0.5); EOS % 1.1 % (0.0-3.0); HEMOGLOBIN 12.8 g/dl (12.0-15.5); LYMPH # 2.1 10^3/uL (1.5-5.0); LYMPH % 23.2 % (24.0-44.0); MEAN CORPUSCULAR HEMOGLOBIN 28.6 pg (27.0-33.0); MEAN CORPUSCULAR VOLUME 89.5 fl (80.0-96.0); MONO # 0.6 10^3/uL (0.0-0.8); MONO % 7.1 % (0.0-5.0); NEUTROPHILS % 67.7 % (36.0-66.0); PLATELET COUNT, AUTOMATED 289 10^3/uL (150-450); RED BLOOD COUNT 4.47 10^6/uL (4.00-5.40); WHITE BLOOD COUNT 8.8 10^3/uL (4.0-10.0)
[2019-10-10 21:03] LABS: ALBUMIN 3.6 GM/DL (3.2-5.2); ALT/SGPT 615 U/L (12-78); BILIRUBIN,DIRECT 1.4 MG/DL (0.0-0.2); BILIRUBIN,TOTAL 1.9 MG/DL (0.2-1.0); BLOOD UREA NITROGEN 10 MG/DL (7-18); CALCIUM LEVEL 8.8 MG/DL (8.8-10.2); CARBON DIOXIDE LEVEL 29 MEQ/L (21-32); CHLORIDE LEVEL 105 MEQ/L (98-107); CREATININE FOR GFR 0.82 MG/DL (0.55-1.30); GLOMERULAR FILTRATION RATE > 60.0 (>45); GLUCOSE, FASTING 105 MG/DL (70-100); LIPASE 156 U/L (73-393); POTASSIUM SERUM 4.4 MEQ/L (3.5-5.1); SODIUM LEVEL 140 MEQ/L (136-145); TOTAL PROTEIN 7.2 GM/DL (6.4-8.2)
[2019-10-10] MEDS ORDERED: ONDANSETRON 4MG/2ML VIAL (J2405) IV ONE (22:15)
[2019-10-10] MEDS ORDERED: NS 1,000 ML IV ONE (22:15)
[2019-10-10 22:23] LABS: AMYLASE 34 U/L (25-115)
--- NOTE | 2019-10-10 23:28 | REPVR ---
PROCEDURE INFORMATION: Exam: US Abdomen Limited, Right Upper Quadrant Exam date and time: 10/10/2019 10:36 PM Age: 63 years old Clinical indication: Abdominal pain; Acute; Additional info: Ruq pain TECHNIQUE: Imaging protocol: Real-time ultrasound of the abdomen with image documentation. Examination was focused on the right upper quadrant. COMPARISON: RENAL US 2018-01-29 13:31 FINDINGS: Liver: Enlarged low attenuating liver, evidence of hepatic steatosis. Gallbladder: Cholelithiasis with a gallstone in the gallbladder neck. Common bile duct: 8 mm mildly enlarged common biliary duct. Pancreas: Visualized pancreas is unremarkable. Right kidney: 11.6 cm right kidney is unremarkable. IMPRESSION: 1. 8 mm mildly enlarged common biliary duct. 2. Cholelithiasis with a gallstone in the gallbladder neck. Electronically signed by: Pedro Heck On 10/10/2019 23:28:00 PM
[2019-10-11] MEDS: LR 1,000 ML IV SCH ×3 (00:18→21:20)
[2019-10-11] MEDS ORDERED: ONDANSETRON 4MG/2ML VIAL (J2405) IV PRN (00:30)
[2019-10-11] MEDS ORDERED: ACETAMINOPHEN TAB 650MG DOSE (2X325MG) PO PRN (00:30)
[2019-10-11] MEDS ORDERED: SERT25TA21 PO (01:12)
[2019-10-11] MEDS ORDERED: ZETI10TA16 PO (01:12)
[2019-10-11] MEDS ORDERED: VITA50005 PO (01:12)
[2019-10-11] MEDS ORDERED: ASPI-161 PO (01:12)
[2019-10-11] MEDS ORDERED: GLUCTAB6 PO ×2 (01:12)
[2019-10-11] MEDS ORDERED: PROP60CA PO (01:12)
[2019-10-11] MEDS ORDERED: FLAX100012 PO (01:12)
[2019-10-11] MEDS ORDERED: CALC500T44 PO (01:12)
[2019-10-11] MEDS ORDERED: LOSA100T50 PO (01:12)
[2019-10-11] MEDS ORDERED: XALA0.007 OU (01:12)
[2019-10-11] MEDS ORDERED: L-LY500T9 PO (01:12)
[2019-10-11] MEDS ORDERED: MECL12.589 PO (01:12)
[2019-10-11] MEDS: ceFAZolin SOD 1 GM in D5W MINI-BAG PLUS 50 ML IV SCH ×3 (01:20→17:16)
[2019-10-11 02:36] VITALS: BP 147/79
[2019-10-11] MEDS: PROPRANOLOL 60 MG LA CAP PO SCH ×2 (02:54→21:19)
[2019-10-11 06:00] VITALS: BP 128/69
--- NOTE | 2019-10-11 06:31 | HPE ---
DATE OF ADMISSION: 10/11/2019 ADMITTING DIAGNOSES: Cholelithiasis and choledocholithiasis and elevated liver function tests. HISTORY OF PRESENT ILLNESS: The patient is a 63-year-old woman who noted the onset of abdominal pain following dinner on the evening of October 09. She described pain that became more pronounced in the right subcostal area fairly lateral. Today, that is on October 10 she noticed that the pain persisted throughout the day. She had some persistent nausea but no vomiting. She described the pain radiating through to her back. On questioning she reports she also has noted that her urine has become somewhat darker than usual today. After putting up with the pain much of the day she presented to the emergency department at about 8 o'clock in the evening. Evaluation included some lab work that showed elevations of her liver function tests and she then had a gallbladder ultrasound that showed a stone in the gallbladder neck region with the common bile duct described as mildly enlarged at 8 mm. The patient has some persistent soreness in the right subcostal area and she is now admitted for management of what appears to be cholelithiasis and choledocholithiasis. ALLERGIES: Allergies are reported to: 1. NONSTEROIDAL ANTI-INFLAMMATORIES which apparently caused an asthmatic attack. 2. She reports allergies to PENICILLIN which cause hives. 3. MORPHINE that leads to confusion and nausea. 4. SULFAMETHOXAZOLE and TRIMETHOPRIM which caused gastrointestinal upset. 5. SIMVASTATIN which causes muscle pain as does ATORVASTATIN. 6. ROFECOXIB which she said led to difficulty breathing. MEDICATIONS: - aspirin 81 mg daily - losartan and 100 mg by mouth daily - propranolol 60 mg by mouth every evening - sertraline 25 mg by mouth every evening. PAST MEDICAL HISTORY: Significant for: 1. Glaucoma. 2. She has a history of an irregular heartbeat and some hypertension. 3. She does have sleep apnea and apparently has a C-PAP device. 4. She has had some benign breast lumps removed. 5. She has had osteoarthritis. PAST SURGICAL HISTORY: Significant for: 1. Removal of breast lumps. 2. She has had a tubal ligation and hysterectomy. 3. She has had bilateral knee replacements. 4. She has had bilateral carpal tunnel releases. 5. She has had foot surgery. 6. She has had several colonoscopies. FAMILY HISTORY: The patient's father is from Alzheimer's, her mother is from diabetes, colon cancer and heart disease. SOCIAL HISTORY: The patient is a former smoker who quit in 1993. She denies any significant alcohol intake. She is . REVIEW OF SYSTEMS: Review of systems reveals no history of chest pain or palpitation, shortness of breath, wheezing, cough, dysuria, hematuria, melena, hematochezia, severe headaches, seizure or stroke, pulmonary embolus or acute orthopedic issues. PHYSICAL EXAMINATION: Exam reveals a pleasant woman sitting up in a chair at the side of the stretcher in the emergency department. VITAL SIGNS: Recorded vital signs show that she had a temperature of 98, pulse 80, and blood pressure of 131/72. General: She is alert and oriented and appears somewhat anxious. Skin: Is warm and dry. Neck: Supple. Heart: Exam shows a regular rhythm and she is not tachycardiac. Lungs: The lungs are clear. Abdomen: Obese and soft. She has some mild focal tenderness in the right subcostal area and otherwise the abdomen is benign. Extremities: Show palpable radial pulses bilaterally. LABORATORY STUDIES: CBC that shows a white count of 9, hemoglobin 13, hematocrit 40 and platelet count of 289,000. Differential count shows 68% neutrophils, 23% lymphocytes and 7% monocytes. Chemistry profile shows normal electrolytes with BUN of 10, creatinine 0.8, glucose of 105. Liver function tests show a total bilirubin of 1.9, direct of 1.4, AST 652, ALT 615 and alkaline phosphatase of 183. Amylase and lipase are normal. Urinalysis reveals no evidence for an acute urinary tract infection. The gallbladder ultrasound shows a stone in the gallbladder neck with a mildly enlarged common bile duct at about 8 mm. There was no sign of acute gallbladder inflammation. IMPRESSION: 1. Cholelithiasis and probable choledocholithiasis with elevated liver function tests. 2. morbid obesity. 3. Obstructive sleep apnea. 4. Hypertension. 5. History of irregular heartbeat. 6. History of asthma. 7. Depression. 8. Osteoarthritis. PLAN: The patient was counseled that her laboratory studies and her pain would suggest a common bile duct stone. This could lead to more serious problems with either infection leading to cholangitis or biliary pancreatitis. I have recommended that she come into the hospital for a recheck of her labs in the morning and an Magnetic Resonance Cholangiopancreatography (MRCP) to look for evidence of common bile duct stone. If a common bile duct stone is identified then she would need an endoscopic retrograde cholangiopancreatography (ERCP) from gastroenterology. Once her common bile duct stones have been addressed a cholecystectomy for her gallstones would be appropriate. The patient will be allowed to take her usual blood pressure medications. She will be kept on IV fluids otherwise and will be kept nothing by mouth. I counseled her that it is possible that she would pass the stone and have her liver function tests return to normal spontaneously. She had an opportunity to ask questions and is in agreement with plan as I have outlined it. MADELINE
--- NOTE | 2019-10-11 08:06 | ECGEPIP ---
[facility] - ED Test Date: 2019-10-10 Pat Name: NIKITA SEVERINO Department: Room: [place] [address] Gender: Female Parts Lister: obed : 1955 Requested By: GARDENIA STEWART Order Number: [id number] Reading MD: Dana Carvalho Measurements Intervals [place] Rate: 65 P: 52 SD: 149 QRS: -18 QRSD: 101 T: -8 QT: 411 QTc: 430 Interpretive Statements SINUS RHYTHM NSTTW abnormalities INCREASED RATE 08/19/19 Electronically Signed on 10-11-2019 8:06:06 EST by Dana Carvalho
[2019-10-11] MEDS: LOSARTAN 50 MG TAB PO SCH (09:13)
[2019-10-11 10:00] VITALS: BP 116/73
--- NOTE | 2019-10-11 10:02 | REP ---
MRCP exam: MRI abdomen without contrast. History: Elevated LFTs. Probable CBD stone. Comparison sonography October 10, 2019 describes an 8 mm CBD and cholelithiasis. There is a comparison CT study from February 17, 2017. Technique: Axial and coronal T2-weighted scans were obtained. MRCP exam is acquired and maximal intensity projection images are generated in the usual fashion. MRCP findings: There is a 2.4 cm simple cyst in the right lobe of the liver anteriorly near the dome of the diaphragm. There are tiny subcentimeter hepatic cysts noted as well. No adrenal lesion is seen. There is a small cyst in the upper pole of the left kidney. No pancreatic cyst or mass is observed on the obtained images. There is a small filling defect in the dependent portion the gallbladder neck. This is consistent with a stone. This gallstone measures 5 mm in diameter. There is no evidence of choledocholithiasis. The common bile duct on MRCP images measures 9 mm and is considered mildly dilated. No duodenal or ampullary mass lesion is seen. Main pancreatic duct measures 2 mm and is felt to be normal. Study is otherwise unremarkable. Impression: Cholelithiasis. No MRCP evidence of choledocholithiasis. Mildly dilated CBD 9 mm. Hepatic and left renal cysts. Electronically Signed by Manuel Avery MD 10/11/2019 07:55 P
[2019-10-11 10:32] LABS: ALBUMIN 3.2 GM/DL (3.2-5.2); BILIRUBIN,DIRECT 0.5 MG/DL (0.0-0.2); BILIRUBIN,TOTAL 1.1 MG/DL (0.2-1.0); TOTAL PROTEIN 6.9 GM/DL (6.4-8.2)
[2019-10-11 14:00] VITALS: BP 146/82
--- NOTE | 2019-10-11 15:55 | IPN ---
DATE: 10/11/2019 HISTORY: The patient was admitted very early this morning just after midnight with abdominal pain and elevated liver function tests with ultrasound showing a stone in the gallbladder neck and a mildly dilated common bile duct. She was admitted with concerns about possible common bile duct stone. Vital signs show that she has remained afebrile. Her pulse is in the high 60s to low 80s. Blood pressure is good and her room air oxygen saturation is normal. Intake and output show that she has had a good urine output with one bowel movement recorded today. PHYSICAL EXAM: The patient has some mild tenderness on palpation in the right upper quadrant. The abdomen is otherwise benign. Heart and lung exam is unremarkable. LABORATORY STUDIES: This morning she had a chemistry profile that showed total bilirubin of 1.1, direct of 0.5, AST of 261, ALT of 477, and alkaline phosphatase of 173. These are all significantly reduced from her labs done at 8:20 on the evening of 10/10/2019. She had an MRI of the abdomen today which shows that her common bile duct is mildly dilated at about 9 mm. There is no filling defect or definite stone identified within the common bile duct or biliary tree overall. There is one stone noted in the neck of the gallbladder. IMPRESSION: The patient's history and lab results are consistent with her having passed a common bile duct stone. There is no stone evident now and her labs are improving. PLAN: I have recommended that we proceed with a cholecystectomy tomorrow. She will be allowed some clear liquids today and has specifically requested some coffee, which I will allow. We will keep her nothing by mouth after 6 o'clock in the morning on 10/12/2019 for surgery later in the day. I will continue her on the [facility] for antibiotic coverage in the interim.
[2019-10-11] MEDS: EZETIMIBE 10 MG TAB (ZETIA) PO SCH (16:11)
[2019-10-11] MEDS: SERTRALINE HCL 25 MG TABLET PO SCH (21:19)
[2019-10-11] MEDS: LATANOPROST 0.005% OPHTH SOLN 2.5 ML OU SCH (21:19)
[2019-10-11 22:00] VITALS: BP 138/73
[2019-10-12] VITALS (9 sets, daily range): BP systolic 108–152; BP diastolic 50–93
[2019-10-12] MEDS: ceFAZolin SOD 1 GM in D5W MINI-BAG PLUS 50 ML IV SCH ×3 (00:07→17:00)
[2019-10-12 07:34] LABS: ALBUMIN 3.3 GM/DL (3.2-5.2); ALT/SGPT 357 U/L (12-78); BLOOD UREA NITROGEN 5 MG/DL (7-18); CALCIUM LEVEL 8.4 MG/DL (8.8-10.2); CARBON DIOXIDE LEVEL 29 MEQ/L (21-32); CHLORIDE LEVEL 108 MEQ/L (98-107); CREATININE FOR GFR 0.75 MG/DL (0.55-1.30); GLOMERULAR FILTRATION RATE > 60.0 (>45); GLUCOSE, FASTING 127 MG/DL (70-100); POTASSIUM SERUM 3.9 MEQ/L (3.5-5.1); SODIUM LEVEL 143 MEQ/L (136-145); TOTAL PROTEIN 6.9 GM/DL (6.4-8.2)
[2019-10-12] MEDS: EZETIMIBE 10 MG TAB (ZETIA) PO SCH (09:05)
[2019-10-12] MEDS: LOSARTAN 50 MG TAB PO SCH (09:05)
[2019-10-12] MEDS ORDERED: BUPIVACAINE HCL 0.25% 30 ML VIAL As Ordered ONE (12:31)
[2019-10-12] MEDS ORDERED: MIDAZOLAM INJ 2 MG/2 ML VIAL (J2250) As Ordered ONE (12:34)
[2019-10-12] MEDS ORDERED: fentaNYL 100 MCG/2 ML INJECTION (J3010) As Ordered ONE (12:35)
[2019-10-12] MEDS ORDERED: SUGAMMADEX SODIUM 500 MG/5 ML VIAL (BRIDION) As Ordered ONE ×2 (12:35→16:55)
[2019-10-12] MEDS ORDERED: propofoL 200 MG/20 ML VIAL As Ordered ONE (12:35)
[2019-10-12] MEDS ORDERED: ACETAMINOPHEN 1000MG 100ML IV BTL (OFIRMEV) (J0131 PER 10MG) As Ordered ONE ×2 (12:35→16:55)
[2019-10-12] MEDS ORDERED: ONDANSETRON 4MG/2ML VIAL (J2405) As Ordered ONE ×2 (12:35→16:54)
[2019-10-12] MEDS ORDERED: dexameTHASONE 4 MG/ML 1ML VIAL (J1100) As Ordered ONE ×3 (12:35→16:55)
[2019-10-12] MEDS ORDERED: LIDOCAINE 2% INJ 100 MG/5 ML SDV (FOR ANES.) As Ordered ONE (12:35)
[2019-10-12] MEDS ORDERED: ROCURONIUM BROMIDE 50 MG/5 ML VIAL As Ordered ONE (12:36)
[2019-10-12] MEDS ORDERED: CONRAY-60 60% 50ML VIAL (Q9961) As Ordered ONE (15:55)
[2019-10-12] MEDS ORDERED: ESMOLOL INJ 100MG/10ML VIAL As Ordered ONE (16:15)
[2019-10-12] MEDS ORDERED: METOPROLOL 5 MG/5 ML VIAL As Ordered ONE (16:26)
[2019-10-12] MEDS ORDERED: fentaNYL 250 MCG/5 ML INJECTION (J3010) As Ordered ONE (16:31)
[2019-10-12] MEDS ORDERED: METOCLOPRAMIDE INJ 10MG/2ML VIAL (J2765) As Ordered ONE (16:54)
[2019-10-12] MEDS ORDERED: KETOROLAC 60 MG/2 ML VIAL (J1885) As Ordered ONE (16:54)
[2019-10-12] MEDS ORDERED: PERCOCET 5MG/325MG TAB PO PRN (17:45)
[2019-10-12] MEDS ORDERED: fentaNYL 100 MCG/2 ML INJECTION (J3010) IV PRN (18:00)
[2019-10-12] MEDS ORDERED: traMADol 50 MG TAB PO PRN (18:00)
[2019-10-12] MEDS ORDERED: LR 1,000 ML IV SCH (18:00)
--- NOTE | 2019-10-12 18:07 | ECGEPIP ---
[facility] Test Date: 2019-10-12 Pat Name: NIKITA SEVERINO Department: Room: E2017-30 Gender: Female Hand Collator: JAROCHO : 1955 Requested By: Manuel Manley Order Number: [id number] Reading MD: Linda Butler Measurements Intervals [place] Rate: 112 P: [place]: 0 QRS: -14 QRSD: 104 T: -37 QT: 346 QTc: 473 Interpretive Statements ATRIAL FIBRILLATION WITH RAPID VENTRICULAR RESPONSE INCOMPLETE RIGHT BUNDLE BRANCH BLOCK LAD ST & T-WAVE ABNORMALITY MORE MARKED/NEW A FIB NEW C/W 10/10/19 Electronically Signed on 10-12-2019 18:07:31 EST by Linda Butler
[2019-10-12] MEDS ORDERED: PERCOCET 5MG/325MG TAB As Ordered ONE (18:08)
--- NOTE | 2019-10-12 19:03 | REP ---
INTRAOPERATIVE CHOLANGIOGRAM: Multiple C-ARM views are performed during intraoperative cholangiogram. Contrast opacifies intrahepatic and extrahepatic bile duct. No filling defect or stricture is seen of the common hepatic or common bile duct. There is free passage of contrast into the duodenum through the ampulla of Vater. 12 seconds of fluoroscopy time was utilized. Electronically Signed by Adolfo Lima MD 10/12/2019 07:32 P
[2019-10-12] MEDS: LATANOPROST 0.005% OPHTH SOLN 2.5 ML OU SCH (21:00)
[2019-10-12] MEDS: SERTRALINE HCL 25 MG TABLET PO SCH (22:56)
[2019-10-12] MEDS: PROPRANOLOL 60 MG LA CAP PO SCH (22:57)
[2019-10-12] MEDS: LR 1,000 ML IV SCH (22:57)
[2019-10-13] VITALS (13 sets, daily range): BP systolic 107–134; BP diastolic 53–69; O2SAT 94–97
[2019-10-13] MEDS: ceFAZolin SOD 1 GM in D5W MINI-BAG PLUS 50 ML IV SCH ×2 (01:35→07:59)
[2019-10-13] MEDS: LR 1,000 ML IV SCH (05:20)
--- NOTE | 2019-10-13 05:40 | ECGEPIP ---
[facility] Test Date: 2019-10-12 Pat Name: NIKITA SEVERINO Department: Room: A9120-82 Gender: Female Cook Fruit: JAROCHO : 1955 Requested By: IRASEMA oRdney Order Number: [id number] Reading MD: Linda Butler Measurements Intervals [place] Rate: 72 P: 52 ND: 163 QRS: -19 QRSD: 100 T: -11 QT: 400 QTc: 440 Interpretive Statements SINUS RHYTHM STT-WAVE ABNORMALITY PERSISTS LAD CONVERTED TO SINUS PREV A FIB IRBBB Electronically Signed on 10-13-2019 5:40:35 EST by Linda Butler
[2019-10-13] MEDS: EZETIMIBE 10 MG TAB (ZETIA) PO SCH (07:59)
[2019-10-13] MEDS: LOSARTAN 50 MG TAB PO SCH (07:59)
[2019-10-13 08:03] LABS: ALBUMIN 3.1 GM/DL (3.2-5.2); ALT/SGPT 287 U/L (12-78); BILIRUBIN,TOTAL 0.7 MG/DL (0.2-1.0); BLOOD UREA NITROGEN 7 MG/DL (7-18); CALCIUM LEVEL 8.5 MG/DL (8.8-10.2); CARBON DIOXIDE LEVEL 27 MEQ/L (21-32); CHLORIDE LEVEL 109 MEQ/L (98-107); CREATININE FOR GFR 0.62 MG/DL (0.55-1.30); GLOMERULAR FILTRATION RATE > 60.0 (>45); GLUCOSE, FASTING 134 MG/DL (70-100); POTASSIUM SERUM 3.9 MEQ/L (3.5-5.1); SODIUM LEVEL 143 MEQ/L (136-145); TOTAL PROTEIN 6.2 GM/DL (6.4-8.2)
--- NOTE | 2019-10-13 08:51 | IPNPDOC ---
Subjective Date Seen The patient was seen on 10/13/19. Subjective Chief Complaint/HPI Henna has remained in NSR since I met her yesterday. She complained of feeling heart racing around 5 am, but upon review of tele, she was only having PACs. Objective Physical Examination General Exam: Positive: Alert, No Acute Distress Eye Exam: Positive: PERRLA, Conjunctiva & lids normal, EOMI; Negative: Sclera icteric ENT Exam: Positive: Atraumatic, Mucous membr. moist/pink Neck Exam: Positive: Supple; Negative: JVD, thyromegaly Chest Exam: Positive: Clear to auscultation, Normal air movement Heart Exam: Positive: Rate Normal, Regular Rhythm, Normal S1, Normal S2; Negative: Murmurs, Rubs Telemetry: Positive: No significant arrhythmia Abdomen Exam: Positive: Normal bowel sounds, Soft, Tenderness, Hepatospenomegaly (at incision sites only) Female Exam: Positive: Nl Ext Genitalia; Negative: Lesions, Discharge, Odor, Tenderness Extremity Exam: Positive: Normal pulses; Negative: Clubbing, Cyanosis, Edema Skin Exam: Positive: Nl turgor and temperature; Negative: Rash, Breakdown Neuro Exam: Positive: Normal Speech, Cranial Nerves 3-12 NL, Reflexes 2+ Psych Exam: Positive: Mental status NL, Mood NL, Oriented x 3 Assessment /Plan Assessment # Transient post-op atrial fib with rvr likely induced by acute illness - spontaneously converted to nsr - CHADS-vasc = 2 - can follow up with her anode adjuster after discharge for followup for holter monitor - continue aspirin - ok to discharge from my standpoint Plan/VTE VTE Prophylaxis Ordered?: No (ambulating) VTE Exclusion Mechanical Proph: Patient/Family Refusal VS, I&O, 24H, Fishbone Vital Signs/I&O Vital Signs Date Time Temp Pulse Resp B/P (MAP) Pulse Ox O2 Delivery O2 Flow Rate FiO2 10/13/19 08:00 97.6 64 18 134/63 (86) 94 NIPPV (BIPAP/CPAP) 10/12/19 20:00 2 I&O- Last 24 Hours up to 6 AM 10/13/19 06:00 Intake Total 3395 ml Output Total 1800 ml Balance 1595 ml Laboratory Data 24H LABS Laboratory Tests 2 10/13/19 05:06: Anion Gap 7L, Glomerular Filtration Rate > 60.0, Calcium Level 8.5L, Total Bilirubin 0.7#, Aspartate Amino Transf (AST/SGOT) 95H, Alanine Aminotransferase (ALT/SGPT) 287H, Alkaline Phosphatase 153H, Total Protein 6.2L, Albumin 3.1L, Albumin/Globulin Ratio 1.00, Thyroid Stimulating Hormone (TSH) 0.470 CBC/BMP Laboratory Tests 10/13/19 05:06 IRASEMA DE LA PAZ MD Oct 13, 2019 08:51
--- NOTE | 2019-10-13 20:02 | IPN ---
DATE: 10/13/2019 HISTORY: Patient underwent a laparoscopic cholecystectomy with intraoperative cholangiogram for possible acute cholecystitis and a recent passage of a common bile duct stone. Intraoperatively, she went into atrial fibrillation. In the recovery room, the hospitalist was consulted and she converted back into a normal sinus rhythm without any treatment at all. She was placed in the progressive care unit (PCU) overnight on telemetry and has remained in a normal sinus rhythm. The hospitalist has indicated that he think she is safe for discharge today and she can follow up with Dr. Bhatti, who is her local systems integration manager. She apparently has an arrangement made for a visit tomorrow in his office. Vital signs show that she has remained afebrile since surgery. Her pulse today is in the low to mid 70s to low 80s and in a normal sinus rhythm. Her blood pressure is good and room air oxygen saturation is normal. Intake and output show that she had 2 liters in yesterday orally with 2500 mL of urine output. Her urine output today is excellent and she has been tolerating a regular diet. PHYSICAL EXAMINATION: Patient is lying quietly on the hospital bed. She appears quite comfortable. Her dressings are all clean and dry. The abdomen is soft and she has bowel sounds present. She has no undue tenderness. LABORATORY STUDIES: Patient had a chemistry profile this morning that showed normal electrolytes with the exception of a slight elevation of the chloride to 109. BUN and creatinine were 7 and 0.6 and her glucose was 134. Her liver function tests have continued to improve with her total bilirubin 0.7 today. AST, ALT and alkaline phosphatase are 95, 287 and 153 respectively, and these are all improved over the last several days. IMPRESSION: Patient is doing well one day postop from her laparoscopic cholecystectomy. She reports that the pain she was having in her right upper quadrant has resolved, which I think supports the idea of her having acute cholecystitis. Her atrial fibrillation resolved after no more than an hour or so in the operating room. She has an appointment to see her systems integration manager tomorrow. PLAN: Patient will be discharged home. She was counseled regarding diet and activity. She can shower later today. I will schedule for an appointment to come back in the office next week as she hopes that she can continue with her planned trip to the [facility] by next week. I will not give her a prescription for any pain medications, as she has not required any yet. She will call the office if there are any problems.
--- NOTE | 2019-10-14 11:27 | CR ---
DATE OF CONSULTATION: 10/12/2019 TIME: 6:15 p.m. REQUESTING PHYSICIAN: Chaitanya Escalona MD REASON FOR CONSULTATION: Development of atrial fibrillation with rapid ventricular rate in the immediate postoperative setting. HISTORY OF PRESENT ILLNESS: Mrs. Zazueta is a pleasant 63-year-old woman with a past medical history notable for irregular heartbeat for which she is on propranolol, obstructive sleep apnea (NORA) with CPAP therapy. The patient had recently been hospitalized for choledocholithiasis and underwent laparoscopic cholecystectomy this afternoon under the care of Dr. Escalona. Following the surgery, while recovering in the postanesthesia care unit (PACU), the patient developed atrial fibrillation with rapid ventricular rate with heart rates as high as 120s to 130s. An EKG was obtained by Dr. Escalona which showed that she was in atrial fibrillation with RVR. The medicine team was consulted to evaluate her. When I went to see the patient in the PACU, she was alert and oriented, stable hemodynamics with the exception of her heart rate which is consistently in the mid 120s. Telemetry at her bedside revealed that she was in atrial fibrillation with rapid ventricular rate. The patient subsequently got up to the commode and spontaneously converted to a normal sinus rhythm. I was able to get a repeat EKG, which confirmed she was in normal sinus rhythm with P waves easily seen in Lead III and V1 ALLERGIES: The patient's allergies are to: 1. NSAIDS. 2. PENICILLIN. 3. MORPHINE. 4. BACTRIM. 5. SIMVASTATIN. 6. ROFECOXIB. HOME MEDICATIONS: - aspirin - losartan - propranolol - sertraline PAST MEDICAL HISTORY: Notable for: Obstructive sleep apnea (NORA). Irregular heart beat for which she sees Dr. Bhatti in the [facility]. Glaucoma. Benign breast lump. Osteoarthritis (OA). PAST SURGICAL HISTORY: Notable for: Laparoscopic cholecystectomy. Tubal ligation with hysterectomy. Bilateral knee replacements. Bilateral carpal tunnel release. Foot surgery in the past. SOCIAL HISTORY: Patient is an ex-smoker. She is , lives at home with . Does not use any drugs or alcohol products. She is a FULL CODE. REVIEW OF SYSTEMS: 12 systems reviewed with the patient, otherwise negative other than which is mentioned in HPI. PHYSICAL EXAMINATION: On examination today, the patient's temperature is 97.6, pulse 66, respirations 18, blood pressure 113/62, oxygen saturation 94% on room air. General: Patient is alert and oriented times three. She is a morbidly obese woman who appears to be in no acute distress. She is resting comfortably. Head is atraumatic. Pupils symmetric and reactive to light. Oropharynx is clear. Neck is supple. No visible thyromegaly, no thyroid gland tenderness. Lung sounds appreciated without rales, wheeze or rhonchi. Heart is S1, S2, irregularly irregular rhythm at this time. No audible murmurs, rubs or gallops. Abdomen is soft, slightly tender at the incisional sits for laparoscopic procedure. She had active bowel sounds. Extremities are without any significant cyanosis, clubbing or edema. Laboratories have been reviewed. White count is 8.8, hemoglobin 12.8, hematocrit is 40, sodium was 142, potassium 3.9, chloride 108, bicarb 29, BUN 5, creatinine 0.75, glucose 127, calcium is 8.4, total bilirubin is 2, AST is 161, ALT is 357, alkaline phosphatase 175, lipase is 156. Initial EKG showed atrial fibrillation with RVR, repeat EKG showed normal sinus rhythm. MRCP shows cholelithiasis, no evidence of choledocholithiasis. Intraoperative cholangiogram shows no stricture or defect involving the common bile duct. IMPRESSION: 1. Transient atrial fibrillation with RVR, likely brought on by recent stress, choledocholithiasis and passing a stone and also surgery. 2. Obstructive sleep apnea (NORA) on CPAP therapy. 3. Hypertension. RECOMMENDATIONS: As the patient has converted sinus rhythm, I would probably like to closely monitor her in the PCU overnight. At this point in time, she does not need any additional medications to control her heart rate as she is back in a sinus rhythm. Her home medications can be resumed in the morning. She reports she had an echocardiogram approximately six months ago. She can likely followup with her primary care physician for an outpatient echocardiogram and likely 30 day Holter monitor to monitor for any development of atrial fibrillation with RVR. We will check a TSH level in a.m., but from my standpoint if she remains in sinus rhythm she can be discharged in stable condition with followup with her rehab tech, Dr. Bhatti for further workup as an outpatient.
--- NOTE | 2019-10-14 14:08 | RO ---
DATE OF PROCEDURE: 10/12/2019 PREOPERATIVE DIAGNOSIS: Symptomatic cholelithiasis with recent choledocholithiasis. POSTOPERATIVE DIAGNOSIS: Cholelithiasis with possible acute cholecystitis and recent choledocholithiasis. PROCEDURE PERFORMED: A laparoscopic cholecystectomy with intraoperative cholangiogram. SURGEON: Dr. Escalona ANESTHESIA: General. INDICATIONS FOR THE PROCEDURE: Patient is a 63-year-old woman who presented to the emergency department with a history of right upper quadrant pain and tenderness. She was found to have elevated liver function tests. Imaging showed a mildly dilated common bile duct with a stone in the region of the gallbladder neck. There was concern about possible common bile duct stone so she was admitted and started on antibiotics. An MRCP was obtained on the which showed a mildly dilated common bile duct and biliary tree, but with no definite stones seen. The patient is now for a laparoscopic cholecystectomy with intraoperative cholangiogram. OPERATIVE PROCEDURE: The patient was brought to the operating room and placed on the table in a supine position. She was placed under general endotracheal anesthesia. The patient's abdomen was prepped and draped in a sterile fashion. 0.25% Marcaine was infiltrated at each of the trocar sites. A short supraumbilical midline incision was made and this was deepened down to the fascia. A Veress needle was inserted and after positive hanging drop test the abdomen was insufflated with carbon dioxide gas. An 11-mm port was placed over a 5 mm scope and advanced through the abdominal wall without difficulty. Initial examination showed the liver to appear normal. The fundus of the gallbladder was seen and appeared somewhat edematous but not obviously erythematous. Visualized loops of the small and large bowel and stomach appeared normal. The patient was tilted to a reverse Trendelenburg position and rolled slightly to the left. Two 5 mm trocars were placed in the right upper quadrant and a third 5 mm trocar was placed in the left upper quadrant. I attempted to grasp the gallbladder but it was tensely distended. I therefore aspirated the gallbladder with an aspirating needle. Very thick, dark colored bile was aspirated and the gallbladder collapse adequately so that I could grasp this and provide upward traction. Dissection was then begun at the region of the gallbladder neck. There was clearly evidence of some edema of the gallbladder wall. The peritoneum was opened around the neck of the gallbladder. The cholecystic artery was identified and this was doubly clipped with hemoclips and divided. I then identified the cystic duct. This was dissected free of surrounding tissues. This was clipped at the gallbladder neck and the cystic duct was then nicked. An Arrow balloon cholangiogram catheter was then inserted. Cholangiograms were then obtained with the injection of 30% Conray using fluoroscopy. To accomplish this the patient was returned to a flat position. The instruments were removed so that they would not impede the imaging. Initial image showed the common hepatic duct and intrahepatic radicals. All of her ducts appeared moderately distended. There were no filling defects seen. With readjustment of the fluoroscopy the cystic duct origin and the common bile duct and duodenum were seen. The initial images showed no flow of contrast into the duodenum. The duct did appear somewhat dilated. With additional injection of contrast flow of contrast into the duodenum was identified and the ampulla appeared to taper normally and no filling defects were identified. The cholangiogram catheter was removed. There was no back flow of contrast from the cystic duct stump to suggest increased intraductal pressures. The cystic duct was clipped and divided. The gallbladder was then dissected free from the gallbladder bed using cautery dissection. Toward the fundus the gallbladder was fairly deeply imbedded into the liver. Once the gallbladder had been completely dissected free this was placed in an Endopouch. The gallbladder was not perforated in the course of dissection. The gallbladder bed was irrigated and there were no evident bleeding points. The right upper quadrant was copiously irrigated and this was then removed. The patient was returned to a flat position. The abdomen was deflated and the trocars were removed. The gallbladder was recovered through the supraumbilical site which required extending the fascial incision slightly. There was at least one stone palpable within the gallbladder toward the gallbladder neck. The gallbladder was sent for permanent pathology. There was a small pesky bleeder deep in the subcutaneous tissues of the supraumbilical site which required extending the skin incisions slightly to expose this and control this. The fascial incision was then closed with interrupted simple sutures of 2-0 Vicryl. The wound was irrigated and hemostasis was ensured. The skin incisions were then all closed with buried 4-0 Vicryl and Steri-Strips. Light dressings were applied. The patient was awakened in the operating room and extubated and moved to the recovery room. It was noted during the surgery shortly after her abdomen had been insufflated that she flipped into atrial fibrillation from what had been a normal sinus rhythm at the time of surgery. She remained hemodynamically stable. The atrial fibrillation persisted and she was transferred to the recovery room. MADELINE
--- NOTE | 2019-10-26 10:45 | DSES ---
DATE OF ADMISSION: 10/11/2019 DATE OF DISCHARGE: 10/13/2019 ADMITTING DIAGNOSIS: Cholelithiasis and choledocholithiasis with elevated liver function tests. HISTORY OF PRESENT ILLNESS: The patient is a 63-year-old woman who noted the onset of abdominal pain following dinner on the evening of October 09. She described pain that became more pronounced in the right subcostal area quite lateral. On October 10 she noticed that the pain persisted throughout the day. She had some persistent nausea but no vomiting. She described the pain radiating through to her back. She did note that her urine had become somewhat darker in color than usual. She put up with the pain much of the day and then presented to the emergency department late on the evening of October 10. Evaluation included lab work that showed elevations of her liver function tests and a gallbladder ultrasound showed a stone in the gallbladder neck region with the common bile duct described as mildly enlarged at 8 mm. The patient has had some persistent soreness in the right subcostal area with some tenderness noted in this area as well. She is now admitted with a diagnosis of cholelithiasis and choledocholithiasis. HOSPITAL COURSE: The patient was admitted and kept n.p.o. and started on some IV fluids. Her usual blood pressure medications were continued. She was scheduled for an MRI to perform an MRCP to look for evidence of a common bile duct stone as suspected. The imaging was accomplished on the . This showed a single filling defect in the gallbladder neck consistent with a stone. There was no evidence of common bile duct stones, but the common bile duct did measure approximately 9 mm and was considered mildly dilated. There was no evidence of duodenal or ampullary mass. Her liver function tests improved somewhat by the morning of the . However, they did remain quite elevated. On October 12 she was taken to the operating room where she underwent a laparoscopic cholecystectomy with intraoperative cholangiogram. The cholangiogram did show that the biliary tree appeared somewhat dilated but no filling defects were found and the bile duct appeared to taper normally to the ampulla. Following her surgery, her discomfort diminished and her liver function tests fell rapidly toward normal. She made good progress and was discharged home on October 13, 2019. Her history was consistent with passage of a small stone, though this was not confirmed radiographically. FINAL DIAGNOSES: 1. Cholelithiasis and choledocholithiasis with bile duct obstruction. 2. Morbid obesity. 3. Obstructive sleep apnea. 4. Hypertension. 5. History of irregular heartbeat. 6. History of asthma. 7. Depression. 8. Osteoarthritis. 9. Transient atrial fibrillation in the immediate intraoperative postoperative period with spontaneous resolution. PROCEDURE PERFORMED: Laparoscopic cholecystectomy with intraoperative cholangiogram. DISPOSITION: The patient was discharged home on October 13, 2019. She was to followup with her corporate recycling manager on October 14. She was to followup in my office in the coming week. She was not using any prescription pain medications and so no prescription was provided. She was to use ozjv-awe-fijrold medications as necessary. She could take a diet as tolerated. She could shower 24 hours after the surgery. She was to leave Steri-Strips in place until we came off on their own. She was to continue her medications as before admission. She was to call the office for any unexpected problems such as fevers, chills or signs of a wound infection. SUMMARY Thank you
== END 2019-10-13 16:15 | disposition home or self-care (01) | DRG 418 ==
LOC: M ED 19:57 → M ED INP 10-11 00:18 → ENRESERV 10-11 01:00 → M MS5PR 10-11 01:50 → M PCU 10-12 21:48
PROVIDERS: ADMIT Surgery; ATTEND Surgery
PROC: 0FT44ZZ Resection of Gallbladder, Percutaneous Endoscopic Approach (ICD-10-PCS; principal; 2019-10-12 13:54)
DX: K80.61 Calculus of gallbladder and bile duct with cholecystitis, unspecified, with obstruction (principal); Z68.42 Body mass index [BMI] 45.0-49.9, adult; Z88.0 Allergy status to penicillin; Z88.2 Allergy status to sulfonamides; Z88.5 Allergy status to narcotic agent; Z88.8 Allergy status to other drugs, medicaments and biological substances; Z79.82 Long term (current) use of aspirin; Z79.899 Other long term (current) drug therapy; G47.33 Obstructive sleep apnea (adult) (pediatric); M81.0 Age-related osteoporosis without current pathological fracture; Z90.79 Acquired absence of other genital organ(s); Z96.653 Presence of artificial knee joint, bilateral; Z87.891 Personal history of nicotine dependence; E66.01 Morbid (severe) obesity due to excess calories; I10 Essential (primary) hypertension; J45.909 Unspecified asthma, uncomplicated; F32.9 Major depressive disorder, single episode, unspecified; M19.90 Unspecified osteoarthritis, unspecified site; I48.91 Unspecified atrial fibrillation

== ENCOUNTER → 2020-04-23 | Outpatient (CLI) | payer OTHER ==
[~2020-04-23] MED LIST changes: +ASPI-161 PO; -ASPI81TA85 PO; +ASPI81TA86 PO; +CALC500T44 PO; +FLAX100012 PO; +GLUCTAB6 PO; +MECL12.589 PO; +PROHANCE 279.3MG/ML 15ML VIAL As Ordered ONE; +PROHANCE 279.3MG/ML 5ML VIAL As Ordered ONE; +PROP60CA PO; +SERT25TA21 PO; +VITA50005 PO
== END ==
LOC: M RAD 10:54
PROVIDERS: ATTEND Specialist
DX: H93.A3 Pulsatile tinnitus, bilateral (principal)
CPT/HCPCS: 70546; A9576

== ENCOUNTER 2020-06-19 10:23 | Day surgery (SDC) | payer OTHER ==
[~2020-06-19] VITALS: Ht 165.1 cm; Wt 123.4 kg
[~2020-06-19 10:23] MED LIST changes: +NS 1,000 ML IV ONE; -PROHANCE 279.3MG/ML 15ML VIAL As Ordered ONE; -PROHANCE 279.3MG/ML 5ML VIAL As Ordered ONE
[2020-06-19] MEDS ORDERED: propofoL 500 MG/50 ML VIAL As Ordered ONE (11:23)
[2020-06-19] MEDS ORDERED: GLYCOPYRROLATE INJ 0.2 MG/ML 2 ML VIAL As Ordered ONE (11:47)
[2020-06-19 12:30] VITALS: BP 137/85
--- NOTE | 2020-06-19 12:55 | ROOR ---
Patient Name: Henna Zazueta Procedure Date: 06/19/2020 11:37 AM Date of : 1955 Age: 64 Room: [facility] [place] Gender: Female Note Status: Finalized Procedure: Colonoscopy Indications: Screening in patient at increased risk: Family history of 1st-degree relative with colorectal cancer, Last colonoscopy: October 2014 Providers: Chaitanya sEcalona MD Referring MD: Enrique Tony DO Requesting Provider: Medicines: Monitored Anesthesia Care Complications: No immediate complications. Procedure: Pre-Anesthesia Assessment: - Prior to the procedure, a History and Physical was performed, and patient medications and allergies were reviewed. The patient is competent. The risks and benefits of the procedure and the sedation options and risks were discussed with the patient. All questions were answered and informed consent was obtained. Patient identification and proposed procedure were verified by the physician, the nurse and the lithographic proofer in the procedure room. Mental Status Examination: alert and oriented. Prophylactic Antibiotics: The patient does not require prophylactic antibiotics. Prior Anticoagulants: The patient has taken no previous anticoagulant or antiplatelet agents. ASA Grade Assessment: III - A patient with severe systemic disease. After reviewing the risks and benefits, the patient was deemed in satisfactory condition to undergo the procedure. The anesthesia plan was to use monitored anesthesia care (MAC). Immediately prior to administration of medications, the patient was re-assessed for adequacy to receive sedatives. The heart rate, respiratory rate, oxygen saturations, blood pressure, adequacy of pulmonary ventilation, and response to care were monitored throughout the procedure. The physical status of the patient was re-assessed after the procedure. The Colonoscope was introduced through the anus and advanced to the cecum, identified by appendiceal orifice and ileocecal valve. The colonoscopy was somewhat difficult due to significant looping. The quality of the bowel preparation was good. The patient tolerated the procedure well. Findings: The perianal and digital rectal examinations were normal. Multiple medium-mouthed diverticula were found in the sigmoid colon and distal descending colon. The exam was otherwise without abnormality. Impression: - Diverticulosis in the sigmoid colon and in the distal descending colon. - The examination was otherwise normal. - No specimens collected. Recommendation: - Discharge patient to home. - Resume previous diet. - Continue present medications. - Repeat colonoscopy in 5 years for screening purposes. Chaitanya Escalona MD Chaitanya Escalona MD 06/19/2020 12:54:39 PM Electronically signed by Chaitanya Escalona MD Number of Addenda: 0 Note Initiated On: 06/19/2020 11:37 AM Estimated Blood Loss: Estimated blood loss: none.
== END 2020-06-19 12:46 | disposition home or self-care (01) ==
LOC: M OPP 10:23
PROVIDERS: ATTEND Surgery
DX: Z12.11 Encounter for screening for malignant neoplasm of colon (principal); Z80.0 Family history of malignant neoplasm of digestive organs; K57.90 Diverticulosis of intestine, part unspecified, without perforation or abscess without bleeding

== ENCOUNTER → 2020-07-16 | Outpatient (CLI) | payer OTHER ==
[~2020-07-16] MED LIST changes: -NS 1,000 ML IV ONE
--- NOTE | 2020-07-16 15:51 | REP ---
INDICATION: Z12.31 SCREENING MAMMO. Benign lumpectomy May 2018 following high risk stereotactic biopsy right breast May 2018. COMPARISON: 07/08/2019 as well as other prior exams. TECHNIQUE: MLO and CC views of both breasts performed with tomosynthesis. FINDINGS: There is mild scattered fibroglandular tissue bilaterally. Surgical clips are again seen in the upper outer quadrant of the right breast. A new 4 mm nodule is seen in the anterior 3rd of the right breast at 12 o'clock. No other new mass is seen. There are no clustered microcalcifications. The Volpara volumetric breast density pattern is A. IMPRESSION: BIRADS/ACR category 0 incomplete. There is a new 4 mm nodule 12 o'clock right breast anteriorly. Recommend spot compression views and ultrasound to further evaluate. This patient's Tyrer-Cuzick lifetime breast cancer risk assessment score is 31.6%. This mammogram was interpreted with the aid of an FDA-approved computer-aided detection system. The patient states she had a clinical breast exam in over 1 year ago. The patient letter being requested is M0. RECOMMENDATION: Recommend spot compression views and ultrasound right breast. Also given the patient's elevated lifetime risk of breast cancer, supplemental screening MRI of the breasts is recommended in 6 months. <Electronically signed by Adolfo Lima > 07/16/20 [id number]
== END ==
LOC: M WHC 13:36
PROVIDERS: ATTEND Family Medicine
DX: R92.8 Other abnormal and inconclusive findings on diagnostic imaging of breast (principal); N63.15 Unspecified lump in the right breast, overlapping quadrants; Z97.8 Presence of other specified devices

== ENCOUNTER → 2020-08-06 | Outpatient (CLI) | payer OTHER ==
[~2020-08-06] MED LIST changes: -MECL12.589 PO; +MECL12.590 PO
--- NOTE | 2020-08-06 15:44 | REP ---
INDICATION: ADDL VIEWS/RIGHT BREAST NODULE; RIGHT BREAST NODULE. COMPARISON: Comparison mammography July 16, 2020, July 08, 2019. TECHNIQUE: Magnified focal spot-compression craniocaudal, mediolateral, and mediolateral oblique views of the right breast are obtained. Targeted right breast sonography is carried out. FINDINGS: Mammographic views confirm the presencer of a well-circumscribed 4.4 mm nodule in the right breast just medial to the plane of the nipple at approximately the 1 o'clock position. There are surgical clips in the upper outer quadrant on the right. No other mammographic abnormality. Scattered fibroglandular elements. Targeted sonography: The right breast scanning from 11:00 to 2:00. At approximately 12 o'clock position, 4 cm from the nipple, there is a 4 x 3 x 3 mm cyst which appears simple and benign. This is felt to account for the mammographic opacity. IMPRESSION: BIRADS/ACR category 2 benign right breast mammogram and sonographic findings. Simple cyst observed in the right breast on ultrasound, accounting for the mammographic opacity. This patient's Tyrer-Cuzick lifetime breast cancer risk assessment score is 31.6%. This mammogram was interpreted with the aid of an FDA-approved computer-aided detection system. RECOMMENDATION: Repeat screening mammography recommended 1 year (for women over 40). Augmented screening with annual breast MRI scanning is indicated and beginning in 6 months. The patient letter being requested is M1. <Electronically signed by Kevin Avery > 08/06/20 [id number]
== END ==
LOC: M WHC 12:37
PROVIDERS: ATTEND Family Medicine
DX: R92.2 Inconclusive mammogram (principal)

== ENCOUNTER → 2022-09-11 | Outpatient (CLI) | payer MEDICARE, OTHER ==
[~2022-09-11] MED LIST changes: -CALC500T44 PO; +ERGO500029 PO; -GLUCTAB6 PO; +GLUCTAB7 PO; +L-LY500T23 PO; -L-LY500T9 PO; +LOSA100T45 PO; -LOSA100T50 PO; +MECL-136 PO; -MECL12.590 PO; +OYST500T92 PO; -VITA50005 PO
== END ==
LOC: M WHC 11:54
PROVIDERS: ATTEND Nurse Practitioner
DX: Z12.31 Encounter for screening mammogram for malignant neoplasm of breast (principal); Z98.890 Other specified postprocedural states

== ENCOUNTER → 2023-07-28 | Outpatient (REF) | payer MEDICARE, OTHER ==
[~2023-07-28] MED LIST changes: +EZET10TA58 PO; -LOSA100T45 PO; +LOSA100T46 PO; -ZETI10TA16 PO
[2023-07-28 13:54] LABS: APPEARANCE, URINE CLEAR (CLEAR); BACTERIA, URINE AUTO NEGATIVE (NEGATIVE); BILIRUBIN, URINE AUTO NEGATIVE (NEGATIVE); BLOOD, URINE BLOOD NEGATIVE (NEGATIVE); COLOR, URINE YELLOW (YELLOW); GLUCOSE, URINE (UA) AUTO NEGATIVE (NEGATIVE); KETONE, URINE AUTO NEGATIVE (NEGATIVE); LEUKOCYTE ESTERASE, URINE AUTO NEGATIVE (NEGATIVE); MUCUS, URINE SMALL (NEGATIVE); NITRITE, URINE AUTO NEGATIVE (NEGATIVE); PROTEIN, URINE AUTO NEGATIVE (NEGATIVE); RBC, URINE AUTO 1 /HPF (0-3); SPECIFIC GRAVITY URINE AUTO 1.013 (1.002-1.035); SQUAMOUS EPITHELIAL CELL UR AU 1 /HPF (0-6); UROBILINOGEN, URINE AUTO 0.2 mg/dL (0.0-2.0); WBC, URINE AUTO 1 /HPF (0-3)
== END ==
LOC: M LABSMT 10:43
PROVIDERS: ATTEND Specialist
DX: N39.0 Urinary tract infection, site not specified (principal)

== ENCOUNTER → 2023-08-21 | Outpatient (REF) | payer MEDICARE, OTHER ==
[2023-08-21 13:39] LABS: APPEARANCE, URINE CLOUDY (CLEAR); BACTERIA, URINE AUTO 2+ (NEGATIVE); BILIRUBIN, URINE AUTO NEGATIVE (NEGATIVE); BLOOD, URINE BLOOD 2+ (NEGATIVE); COLOR, URINE AMBER (YELLOW); GLUCOSE, URINE (UA) AUTO NEGATIVE (NEGATIVE); KETONE, URINE AUTO NEGATIVE (NEGATIVE); LEUKOCYTE ESTERASE, URINE AUTO 3+ (NEGATIVE); MUCUS, URINE SMALL (NEGATIVE); NITRITE, URINE AUTO NEGATIVE (NEGATIVE); PROTEIN, URINE AUTO 1+ mg/dL (NEGATIVE); RBC, URINE AUTO 85 /HPF (0-3); SPECIFIC GRAVITY URINE AUTO 1.017 (1.002-1.035); SQUAMOUS EPITHELIAL CELL UR AU 2 /HPF (0-6); TRANSITIONAL EPITHELIAL AUTO 1 /HPF; UROBILINOGEN, URINE AUTO 0.2 mg/dL (0.0-2.0); WBC, URINE AUTO TNTC /HPF (0-3)
== END ==
LOC: M SMT 13:00
PROVIDERS: ATTEND Specialist
DX: N39.0 Urinary tract infection, site not specified (principal)

== ENCOUNTER → 2023-11-14 | Outpatient (REF) | payer MEDICARE, OTHER ==
[~2023-11-14] MED LIST changes: -ASPI-161 PO; +ASPI-615 PO
[2023-11-14 19:09] LABS: APPEARANCE, URINE CLOUDY (CLEAR); BACTERIA, URINE AUTO 1+ (NEGATIVE); BILIRUBIN, URINE AUTO NEGATIVE (NEGATIVE); BLOOD, URINE BLOOD 3+ (NEGATIVE); COLOR, URINE YELLOW (YELLOW); GLUCOSE, URINE (UA) AUTO NEGATIVE (NEGATIVE); KETONE, URINE AUTO NEGATIVE (NEGATIVE); LEUKOCYTE ESTERASE, URINE AUTO 3+ (NEGATIVE); MUCUS, URINE SMALL (NEGATIVE); NITRITE, URINE AUTO NEGATIVE (NEGATIVE); PROTEIN, URINE AUTO 1+ mg/dL (NEGATIVE); RBC, URINE AUTO 13 /HPF (0-3); SPECIFIC GRAVITY URINE AUTO 1.003 (1.002-1.035); SQUAMOUS EPITHELIAL CELL UR AU 0 /HPF (0-6); UROBILINOGEN, URINE AUTO 0.2 mg/dL (0.0-2.0); WBC, URINE AUTO TNTC /HPF (0-3)
== END ==
LOC: M LAB REF 17:54
PROVIDERS: ATTEND Physician Assistant
DX: N39.0 Urinary tract infection, site not specified (principal)

== ENCOUNTER → 2024-06-18 | Outpatient (REF) | payer MEDICARE, OTHER ==
[2024-06-18 17:42] LABS: APPEARANCE, URINE CLOUDY (CLEAR); BACTERIA, URINE AUTO 1+ (NEGATIVE); BILIRUBIN, URINE AUTO NEGATIVE (NEGATIVE); BLOOD, URINE BLOOD NEGATIVE (NEGATIVE); COLOR, URINE YELLOW (YELLOW); GLUCOSE, URINE (UA) AUTO NEGATIVE (NEGATIVE); KETONE, URINE AUTO NEGATIVE (NEGATIVE); LEUKOCYTE ESTERASE, URINE AUTO 2+ (NEGATIVE); MUCUS, URINE LARGE (NEGATIVE); NITRITE, URINE AUTO POSITIVE (NEGATIVE); PROTEIN, URINE AUTO NEGATIVE (NEGATIVE); RBC, URINE AUTO 0 /HPF (0-3); SPECIFIC GRAVITY URINE AUTO 1.017 (1.002-1.035); SQUAMOUS EPITHELIAL CELL UR AU 0 /HPF (0-6); UROBILINOGEN, URINE AUTO 0.2 mg/dL (0.0-2.0); WBC, URINE AUTO TNTC /HPF (0-3)
== END ==
LOC: M LAB REF 17:12
PROVIDERS: ATTEND Physician Assistant Medical
DX: N39.0 Urinary tract infection, site not specified (principal)